=== PATIENT | female | born 1975 | race Caucasian/White ===

== ENCOUNTER 2017-03-29 21:52 | Emergency (ER) | payer BC, OTHER ==
[~2017-03-29] VITALS: Ht 160 cm; Wt 121.2 kg
[~2017-03-29 21:52] MED LIST: ALBU2.5V5 NEB; ALBU8.5H8 INH; ALPR0.5T PO; CYCL-331 PO; EPIN0.3A4 IJ; FLUT100P MC; FLUT10SP NS; FURO-69 PO; GLYB2.5T2 PO; HYDR-79 PO; MELO15TA23 PO; METO25TA9 PO; MILN50TA PO; MOME13HF2 IH; NITR0.4T SL; OMEG500C PO; ONDA4TAB10 PO; PREG200C PO; RANI300T3 PO; RIZA10TA6 PO; SIMV10TA3 PO
[2017-03-29] MEDS ORDERED: KETOROLAC 60 MG/2 ML VIAL. IM ONE (22:15)
[2017-03-29] MEDS ORDERED: PROMETHAZINE 25 MG/ML VIAL IV ONE (22:21)
[2017-03-29] MEDS ORDERED: NAPR500T PO (22:29)
[2017-03-29] MEDS ORDERED: CLIN300C8 PO (22:29)
[2017-03-29] MEDS ORDERED: PROM25SU32 PO (22:29)
--- NOTE | 2017-03-29 22:30 | PHYS DOC ---
Past History Past Medical History: COPD, Diabetes, Fibromyalgia, Migraines, Other Past Surgical History: No Surgical History, Other Smoking: Cigarettes, Less than 1pk/day Alcohol Use: None Drug Use: None Adult General Chief Complaint Chief Complaint: HEADACHE HPI HPI Patient is a pleasant 42-year-old female with a history of COPD, migraines, hypertension, hyperglycemia and fibromyalgia presents with sore throat mild frontal headache that began earlier today. Over the last 24 hours patient is experiencing a viral syndrome symptoms of sore throat without cough mild body aches chills fever to 103.1 that does improve with Tylenol or Motrin orally. Patient has had no change in voice she does have pain with swallowing is able to tolerate by mouth food and fluids. 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 Patient denies any focal neurologic deficits the headache is typical for patient as she's had migraines at this in the past is nothing new not sudden onset worst of life there is no neck stiffness associated with this particular headache. Patient denies any trauma denies a change in vision, denies any problems with word finding or speaking. Review of Systems Review of Systems Constitutional: Complaints of fever to 103.1 with chills. Eyes: Denies change in visual acuity, redness, or eye pain [] HENT: Nice nasal congestion or cough but has sore throat without change in voice or neck stiffness Respiratory: Denies cough or shortness of breath [] Cardiovascular: No additional information not addressed in HPI [] GI: Denies abdominal pain, nausea, vomiting, bloody stools or diarrhea [] : Denies dysuria or hematuria [] Musculoskeletal: Denies back pain or joint pain [] Integument: Denies rash or skin lesions [] Neurologic: Patient with frontal headache bitemporal which is typical for patient described as throbbing Endocrine: Denies polyuria or polydipsia [] Current Medications Current Medications Current Medications Medications (Trade) Dose Ordered Sig/Santo Start Time Stop Time Status Last Admin Dose Admin Dexamethasone Sodium Phosphate (Decadron) 10 mg 1X ONCE 03/29/17 22:15 03/29/17 22:16 UNV Ketorolac Tromethamine (Toradol) 60 mg 1X ONCE 03/29/17 22:15 03/29/17 22:16 UNV Promethazine HCl (Phenergan Im) 25 mg 1X ONCE 03/29/17 22:15 03/29/17 22:16 UNV Allergies Allergies Allergies Coded Allergies Type Severity Reaction Last Updated Verified Penicillins Allergy Severe 03/19/14 Yes levofloxacin Allergy Severe Anaphylaxis 11/07/16 Yes acetaminophen Allergy Unknown 02/15/14 Yes egg Allergy Unknown 02/15/14 Yes latex Allergy Unknown 02/15/14 Yes theophylline Allergy Unknown 02/15/14 Yes Estrogens Adverse Reaction Unknown blisters in mouth 10/02/14 No Physical Exam Physical Exam Constitutional: Well developed, well nourished, overweight obviously uncomfortable but nontoxic in appearance, normal speech HENT: Normocephalic, atraumatic, bilateral external ears normal, oropharynx is moist with no lesions there are exudates noted on the tonsillar pillars the peritonsillar abscess or retropharyngeal abscess or Alvaro's angina Eyes: PERRLA, EOMI, conjunctiva normal, no discharge. [] Neck: Normal range of motion, noted anterior cervical lymphadenopathy no stridor noted Cardiovascular: Regular rhythm A she is noted to be tachycardic no murmurs, rubs Lungs & Thorax: Bilateral breath sounds clear to auscultation [] Abdomen: Bowel sounds normal, soft, no tenderness, no masses, no pulsatile masses. [] Skin: Warm, dry, no erythema, no rash. [] Back: No tenderness, no CVA tenderness. [] Extremities: No tenderness, no cyanosis, no clubbing, ROM intact, no edema. [] Neurologic: Alert and oriented X 3, normal motor function, normal sensory function, no focal deficits noted. Moves all extremity spontaneously with normal strength. No focal neurologic deficits on neurologic included normal gait Psychologic: Affect normal, judgement normal, mood normal. [] EKG EKG [] Radiology/Procedures Radiology/Procedures [] Course & Med Decision Making Course & Med Decision Making Pertinent Labs and Imaging studies reviewed. (See chart for details) reviewed labs as well as vital signs and nursing notes agree with what has been annotated. Patient with likely strep pharyngitis given symptoms doubt meningitis or retropharyngeal abscess, Alvaro angina peritonsillar abscess. This may be viral in nature but patient would benefit from Decadron IM, Phenergan IM, and Toradol. She has a typical migraine headache with nothing new or soft life and sudden onset doubt issues of meningitis or subarachnoid hemorrhage at this time patient I discussed treatment options and we came up with the idea of oral hydration after IM medications. She will be dispositioned on an antibiotic such as a macrolide or clindamycin for suspected strep throat as her pharyngitis cream is positive we will give her precautions and have her follow up with her primary care doctor. Impression: Sharp pharyngitis, migraine headache Disposition: Discharged home with precautions antibiotics primary care follow- up in the next 24-48 hours asked to return for any worsening symptoms fever over 102.2 despite treatment or questions or concerns. Differential diagnosis includes viral versus bacterial pharyngitis, Alvaro angina, peritonsillar abscess, retropharyngeal abscess, sinusitis, virus, URI, migraine, tension headache, temporal arteritis, cerebral hemorrhage, otitis media, otitis externa, [] Dragon Disclaimer Dragon Disclaimer This chart was dictated in whole or in part using Voice Recognition software in a busy, high-work load, and often noisy Emergency Department environment. It may contain unintended and wholly unrecognized errors or omissions. Departure Departure: Impression: Primary Impression: Pharyngitis, acute Additional Impression: Migraine Disposition: 01 HOME, SELF-CARE Referrals: NGUYEN MORAN MD (PCP) Patient Instructions: Fever, Adult, Migraine Headache, Viral and Bacterial Pharyngitis Additional Instructions: He is follow-up with her primary care doctor for any continued or worsening symptoms. Please return here for any change in voice anterior neck stiffness or fullness or inability to tolerate her medications. Please return for any fevers greater 103.1 despite treatment or therapy of any questions or concerns. You are infectious so please avoid preparing food without washing her hands. These return for any new or changing symptoms in her headaches. Scripts Clindamycin Hcl (CLINDAMYCIN HCL) 300 Mg Capsule 1 CAP PO TID, #30 CAP Prov: KEYSHA RIOS MD 03/29/17 Promethazine HCl (Phenergan) 25 Mg Supp.rect 25 MG PO TID for 7 Days, #21 TAB Prov: KEYSHA RIOS MD 03/29/17 Naproxen (NAPROSYN) 500 Mg Tablet 1 TAB PO BID, #20 TAB 1 Refill Prov: KEYSHA RIOS MD 03/29/17 Problem Qualifiers KEYSHA RIOS MD March 29, 2017 22:30
[2017-03-29 22:40] LABS: INFLUENZA A PATIENT POSITIVE (NEGATIVE); INFLUENZA B PATIENT NEGATIVE (NEGATIVE)
[2017-03-29] MEDS ORDERED: DEXAMETHASONE SOD PHOS 10 MG/ML VIAL IM ONE (22:45)
[2017-03-29] MEDS ORDERED: PROMETHAZINE IM 25 MG/ML VIAL IM ONE (22:45)
[2017-03-29 22:50] VITALS: BP 135/72
[2017-03-29] MEDS ORDERED: CLINDAMYCIN HCL 150 MG CAPSULE PO ONE (23:00)
== END 2017-03-29 22:54 | disposition home or self-care (01) ==
LOC: ER 21:57
DX: J02.9 Acute pharyngitis, unspecified (principal); G43.909 Migraine, unspecified, not intractable, without status migrainosus; J44.9 Chronic obstructive pulmonary disease, unspecified; M79.7 Fibromyalgia; E11.65 Type 2 diabetes mellitus with hyperglycemia; F17.210 Nicotine dependence, cigarettes, uncomplicated; Z88.8 Allergy status to other drugs, medicaments and biological substances; Z88.0 Allergy status to penicillin; Z88.6 Allergy status to analgesic agent; Z88.1 Allergy status to other antibiotic agents; Z91.012 Allergy to eggs; Z91.040 Latex allergy status
CPT/HCPCS: 87804; 87880; 96372; 99284; J1100; J1885; J2550

== ENCOUNTER 2017-04-21 01:17 | Emergency (ER) | payer BC, OTHER ==
[~2017-04-21] VITALS: Ht 160 cm; Wt 121.2 kg
[~2017-04-21 01:17] MED LIST changes: +CLIN300C8 PO; +NAPR500T PO; +PROM25SU32 PO
--- NOTE | 2017-04-21 01:28 | PHYS DOC ---
Past History Past Medical History: COPD, Diabetes, Fibromyalgia, Migraines, Other Past Surgical History: No Surgical History, Other Smoking: Cigarettes, Less than 1pk/day Alcohol Use: None Drug Use: None Adult General Chief Complaint Chief Complaint: HEADACHE HPI HPI Patient here with her daughter for headache. Patient states she's had a history of migraine headaches since 13 years old. She seen doctors for this and says she's had a negative CT and MRI. She does have an appointment with her primary care physician later this week to discuss changes her present regiment as not working. She normally takes tramadol at home for her headaches but this headache did not respond to her typical treatment of dark rooms showers.. Her headache today started about 11 AM It's increased since that time. Is located over the left side of the head. It feels throbbing. She says she sees blurriness and spots in her vision. This is typical for her migraines. She has no runny nose or sore throat. She has no difficulty with speech. There is no fever or chills. She has no neck or back pain. There is no chest pain or shortness of breath. She's vomited 5 times today without blood or bilious material. She's had no abdominal pain. She has no change in bowel or bladder habits and she denies any acute focal extremity or other than the headache as previously described. She notes no other increasing or decreasing factors. There is no history of injury or trauma to the head. Patient's past medical history is remarkable for migraine headaches. She also has diabetes which is diet controlled. She has history of fibromyalgia and hypertension. She is a smoker there is nothing new or changed about this headache. Review of Systems Review of Systems Constitutional: Denies fever or chills [] Eyes: She does have some photophobia and blurred vision with sibling scotomata before the pain begins. HENT: Denies nasal congestion or sore throat [] Respiratory: Denies cough or shortness of breath [] Cardiovascular: No additional information not addressed in HPI [] GI: Denies abdominal pain, nausea, vomiting, bloody stools or diarrhea [] : Denies dysuria or hematuria [] Musculoskeletal: Denies back pain or joint pain [] Integument: Denies rash or skin lesions [] Neurologic: She describes her typical headache on the left side of her head with radiation to the neck not worst of life not sudden onset Endocrine: Denies polyuria or polydipsia [] Allergies Allergies Allergies Coded Allergies Type Severity Reaction Last Updated Verified Penicillins Allergy Severe 03/19/14 Yes levofloxacin Allergy Severe Anaphylaxis 11/07/16 Yes acetaminophen Allergy Unknown 02/15/14 Yes egg Allergy Unknown 02/15/14 Yes latex Allergy Unknown 02/15/14 Yes theophylline Allergy Unknown 02/15/14 Yes Estrogens Adverse Reaction Unknown blisters in mouth 10/02/14 No Physical Exam Physical Exam Constitutional: Well developed, well nourished, uncomfortable sitting with her eyes closed nontoxic in appearance HENT: Normocephalic, atraumatic, bilateral external ears normal, oropharynx moist, no facial tenderness to palpation or swelling. Eyes: PERRLA, EOMI, conjunctiva normal, no discharge. [] Neck: Normal range of motion, no tenderness, supple, no stridor. [] Cardiovascular:Heart rate regular rhythm, no murmur [] Lungs & Thorax: Bilateral breath sounds clear to auscultation [] Skin: Warm, dry, no erythema, no rash. [] Neurologic: Alert and oriented X 3, normal motor function, normal sensory function, no focal deficits noted. [] Psychologic: Affect normal, judgement normal, mood normal. [] EKG EKG [] Radiology/Procedures Radiology/Procedures [] Course & Med Decision Making Course & Med Decision Making Pertinent Labs and Imaging studies reviewed. (See chart for details). Nursing notes and prior medical records. Patient's pain was reviewed and rechecked at 2 AM it is improved from 9-7. Patient was resting comfortably with her eyes closed given the fact the patient is totally pain we'll attempt with DHe treatment. Spoke with patient again about eating not to use narcotics for the breakthrough and brown speck phenomenon occurs with narcotic use. I will re- treat patient and recheck pain level and disposition to her primary care doctor if I can improve her pain impression migraine headache typical for patient, nausea Disposition: [] Dragon Disclaimer Dragon Disclaimer This chart was dictated in whole or in part using Voice Recognition software in a busy, high-work load, and often noisy Emergency Department environment. It may contain unintended and wholly unrecognized errors or omissions. Departure Departure: Impression: Primary Impression: Headache Disposition: HOME, SELF-CARE Condition: IMPROVED Referrals: NGUYEN MORAN MD (PCP) Patient Instructions: Migraine Headache Additional Instructions: Patient is to return for any new or increasing symptoms despite treatment asked to follow-up with her neurologist and primary care doctor to review her medical regimen to see we can improve outpatient management of her migraines. Asked to return for any fevers greater 102.2 with neck stiffness or if she has any questions or concerns. Scripts Tramadol Hcl (TRAMADOL HCL) 50 Mg Tablet 50 MG PO PRN Q6HRS Y for PAIN for 7 Days, TAB Prov: KEYSHA RIOS MD 04/21/17 Ondansetron (ZOFRAN ODT) 8 Mg Tab.rapdis 8 MG PO TID, #10 Prov: KEYSHA RIOS MD 04/21/17 KEYSHA RIOS MD April 21, 2017 01:28
[2017-04-21] MEDS ORDERED: DEXAMETHASONE SOD PHOS 10 MG/ML VIAL IM ONE (02:00)
[2017-04-21] MEDS ORDERED: KETOROLAC 60 MG/2 ML VIAL. IM ONE (02:00)
[2017-04-21] MEDS ORDERED: diphenhydrAMINE 50 MG/ML VIAL IM ONE (02:00)
[2017-04-21] MEDS ORDERED: PROMETHAZINE IM 25 MG/ML VIAL IM ONE (02:00)
[2017-04-21] MEDS ORDERED: DIHYDROERGOTAMINE 1 MG/ML AMPUL. IVP ONE (02:30)
[2017-04-21] MEDS ORDERED: TRAM50TA PO (02:30)
[2017-04-21] MEDS ORDERED: ONDA8TAB12 PO (02:30)
[2017-04-21 02:42] VITALS: BP 134/76
[2017-04-21] MEDS ORDERED: IV NORMAL SALINE 1,000ML 1,000 ML IV ONE (03:00)
== END 2017-04-21 02:42 | disposition home or self-care (01) ==
LOC: ER 01:17
DX: G43.909 Migraine, unspecified, not intractable, without status migrainosus (principal); J44.9 Chronic obstructive pulmonary disease, unspecified; E11.9 Type 2 diabetes mellitus without complications; M79.7 Fibromyalgia; F17.210 Nicotine dependence, cigarettes, uncomplicated; Z88.0 Allergy status to penicillin; Z88.8 Allergy status to other drugs, medicaments and biological substances; Z88.6 Allergy status to analgesic agent; Z88.1 Allergy status to other antibiotic agents; Z91.012 Allergy to eggs
CPT/HCPCS: 96372; 99284; J1100; J1200; J1885; J2550

== ENCOUNTER 2017-05-07 00:58 | Emergency (ER) | payer BC, OTHER ==
[~2017-05-07 00:58] MED LIST changes: +ONDA8TAB12 PO; +TRAM50TA PO
--- NOTE | 2017-05-07 01:00 | ED.ADGEN ---
Past History Past Medical History: COPD, Diabetes, Fibromyalgia, Migraines, Other Past Surgical History: Appendectomy, Cholecystectomy, Hysterectomy, Tonsillectomy, Other Smoking: Cigarettes, Less than 1pk/day Alcohol Use: None Drug Use: None Adult General Chief Complaint Chief Complaint Right foot pain HPI HPI Patient is a 42 year old and female who presents with to pain. She was going down steps carrying boxes when her Son-In-Law stepped on her foot with his boots. She states that he twisted [id number] trying to figure out was going wrong and it is hurting on the top aspect of her right foot. She denies any ankle, or lateral aspect of her foot pain. She states it hurts more than a normal Tramadol pain. Review of Systems Review of Systems Constitutional: Denies fever or chills [] Eyes: Denies change in visual acuity, redness, or eye pain [] HENT: Denies nasal congestion or sore throat [] Respiratory: Denies cough or shortness of breath [] Cardiovascular: No additional information not addressed in HPI [] GI: Denies abdominal pain, nausea, vomiting, bloody stools or diarrhea [] : Denies dysuria or hematuria [] Musculoskeletal: Denies back pain, positive for right foot pain Integument: Denies rash or skin lesions [] Neurologic: Denies headache, focal weakness or sensory changes [] Endocrine: Denies polyuria or polydipsia [] Current Medications Current Medications Current Medications Medications (Trade) Dose Ordered Sig/Santo Start Time Stop Time Status Last Admin Dose Admin Oxycodone HCl (Roxicodone) 10 mg PRN Q6HRS PRN 05/07/17 01:15 05/07/17 01:14 10 MG Allergies Allergies Allergies Coded Allergies Type Severity Reaction Last Updated Verified Penicillins Allergy Severe 03/19/14 Yes levofloxacin Allergy Severe Anaphylaxis 11/07/16 Yes acetaminophen Allergy Unknown 02/15/14 Yes egg Allergy Unknown 02/15/14 Yes latex Allergy Unknown 02/15/14 Yes theophylline Allergy Unknown 02/15/14 Yes Estrogens Adverse Reaction Unknown blisters in mouth 10/02/14 No Physical Exam Physical Exam Constitutional: Well developed, well nourished, no acute distress, non-toxic appearance. [] HENT: Normocephalic, atraumatic, bilateral external ears normal, oropharynx moist, no oral exudates, nose normal. [] Eyes: PERRLA, EOMI, conjunctiva normal, no discharge. [] Neck: Normal range of motion, no tenderness, supple, no stridor. [] Cardiovascular:Heart rate regular rhythm, no murmur [] Lungs & Thorax: Bilateral breath sounds clear to auscultation [] Abdomen: Bowel sounds normal, soft, no tenderness, no masses, no pulsatile masses. [] Skin: Warm, dry, no erythema, no rash. [] Back: No tenderness, no CVA tenderness. [] Extremities: Tender palpation of the proximal portion of the right foot, no obvious deformity noted, no tenderness over the fifth metatarsal area, no cyanosis, no clubbing, ROM intact, no edema. Dorsal pedis pulse on right foot 2+ Neurologic: Alert and oriented X 3, normal motor function, normal sensory function, no focal deficits noted. [] Psychologic: Affect normal, judgement normal, mood normal. [] Current Patient Data Vital Signs Vital Signs Date Time Temp Pulse Resp B/P (MAP) Pulse Ox O2 Delivery O2 Flow Rate FiO2 05/07/17 01:14 20 97 Room Air 05/07/17 01:05 98.3 87 EKG EKG [] Radiology/Procedures Radiology/Procedures 3 views of the right foot did not show any fractures, bony abnormalities, malalignments, foreign bodies, as interpreted by me. Course & Med Decision Making Course & Med Decision Making Pertinent Labs and Imaging studies reviewed. (See chart for details) Reviews of the foot didn't show any obvious fractures. Patient is placed in a postop shoe and given crutches and 20 tablets of oxycodone 5 mg. She is instructed to follow-up with her primary care physician in 5 days of is still hurting, return ER if she develops swelling, ecchymosis, erythema, fevers chills or other concerns. Final Impression Final Impression Foot contusion Problems: Dragon Disclaimer Dragon Disclaimer This electronic medical record was generated, in whole or in part, using a voice recognition dictation system. MELYSSA MAYO MD May 07, 2017 01:00
[2017-05-07 01:05] VITALS: BP 118/86
[2017-05-07] MEDS ORDERED: OXYC5TAB PO (01:14)
[2017-05-07] MEDS ORDERED: oxyCODONE IR 5 MG TABLET PO PRN (01:15)
--- NOTE | 2017-05-07 07:22 | RAD ---
Right foot, 3 views, 05/07/2017: History: Injury, pain No fracture or dislocation is identified. There is generalized subcutaneous edema. A small inferior calcaneal spur is noted. IMPRESSION: No acute bony abnormality is detected.
== END 2017-05-07 02:20 | disposition home or self-care (01) ==
LOC: ER 00:58
DX: S90.31XA Contusion of right foot, initial encounter (principal); E11.9 Type 2 diabetes mellitus without complications; J44.9 Chronic obstructive pulmonary disease, unspecified; M79.7 Fibromyalgia; F17.210 Nicotine dependence, cigarettes, uncomplicated; Z88.0 Allergy status to penicillin; Z88.8 Allergy status to other drugs, medicaments and biological substances; Z88.6 Allergy status to analgesic agent; Z88.1 Allergy status to other antibiotic agents; Z91.012 Allergy to eggs; Z91.040 Latex allergy status; X58.XXXA Exposure to other specified factors, initial encounter; Y93.01 Activity, walking, marching and hiking; Y99.8 Other external cause status; Y92.89 Other specified places as the place of occurrence of the external cause
CPT/HCPCS: 73630; 99284

== ENCOUNTER 2017-05-26 23:35 | Emergency (ER) | payer BC, OTHER ==
[~2017-05-26] VITALS: Ht 160 cm; Wt 121.2 kg
[~2017-05-26 23:35] MED LIST changes: +OXYC5TAB PO
--- NOTE | 2017-05-27 00:38 | PHYS DOC ---
General Chief Complaint: HEADACHE Stated Complaint: HEAD AND JAW PAIN Time Seen by MD: 23:39 Source: patient Problems: History of Present Illness Initial Comments Patient is a 42-year-old female who comes to the ED complaining of left-sided neck and jaw pain. Patient states that for the past couple of days she's had worsening neck muscle stiffness. Yesterday she says while turning her head she felt a pop in her neck and her left cervical paraspinal muscles tightened up. She's had stiffness and muscle discomfort since that time. She denies trauma no arm or leg symptoms no numbness tingling weakness or radiating symptoms. No pre-arrival treatment. Patient states that she's been under a lot of stress, she is having custody issues with her children as well as financial and housing problems. She has temporarily lost her health insurance and has run out of her medication she takes for fibromyalgia hypertension and hyperlipidemia. Patient ultimately states that she is out of pain medications including Flexeril and Ultram. She says she has taken Ultram 100 mg twice daily long-term and states that that would takes her problem. I advised her that refills were not given from the emergency Department but I would give her several days of meds to allow her to get in with the doctor that takes her insurance. She expressed agreement and understanding. Timing/Duration: 24 hours, constant Severity: moderate Modifying Factors: worse with movement, improves with rest Associated Symptoms: other Allergies: Coded Allergies: Penicillins (Verified Allergy, Severe, 03/19/14) levofloxacin (Verified Allergy, Severe, Anaphylaxis, 11/07/16) acetaminophen (Verified Allergy, Unknown, 02/15/14) egg (Verified Allergy, Unknown, 02/15/14) latex (Verified Allergy, Unknown, 02/15/14) theophylline (Verified Allergy, Unknown, 02/15/14) Estrogens (Unverified Adverse Reaction, Unknown, blisters in mouth, ) Past Medical History Medical History: diabetes, fibromyalgia, migraines, other (COPD, diabetes, fibromyalgia, migraine headaches, chronic pain) Surgical History: appendectomy, cholecystectomy, tonsillectomy, other Family History Significant Family History: no pertinent family hx Social History Smoker: less than 1 pack/day Alcohol: none Drugs: none Review of Systems Constitutional: denies chills, denies diaphoresis, denies fever, denies malaise Respiratory: denies cough, denies shortness of breath Cardiovascular: denies chest pain, denies palpitations, denies syncope Gastrointestinal: denies abdominal pain, denies diarrhea, denies nausea, denies vomiting Genitourinary: denies dysuria, denies frequency, denies hematuria Musculoskeletal: see HPI, denies back pain, denies joint swelling Psychiatric/Neurological: see HPI, denies numbness, denies paresthesia, denies seizure, denies weakness Physical Exam General Appearance: mild distress, obese Ear, Nose, Throat: hearing grossly normal, normal ENT inspection, normal pharynx Neck: supple (left-sided cervical paraspinal hypertonicity with tenderness to palpation. No palpable deformity no bony tenderness no midline or vertebral tenderness. 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 Departure Time of Disposition: 00:34 Disposition: 01 HOME, SELF-CARE Diagnosis: torticollis, adjustment disorder, fibromyalgia Condition: GOOD Patient Instructions: Adjustment Disorder, Smoking Cessation, Tips For Success , Torticollis, Acute Additional Instructions: Stop smoking, seek medical assistance if necessary. Heating pad to affected area 15-20 minutes 4-6 times daily followed by gentle stretching. Aggressive hydration with Gatorade or water. Prescription: Flexeril, tramadol You will need to follow up with a primary care doctor for refills and health maintenance until your health insurance is reinstated and you can get back in with your regular doctor. ED staff can give you names of local doctors who are accepting new patients, who take Medicaid, and who have walk-in hours daily. Call tomorrow to schedule next available appointment. Return to ED with new or changing symptoms. SUSU UGARTE DO May 27, 2017 00:38
[2017-05-27 00:44] VITALS: BP 124/84
[2017-05-27] MEDS ORDERED: ORPHENADRINE CITRATE 60 MG/2 ML VIAL. IM ONE (00:45)
[2017-05-27] MEDS ORDERED: START PACK - traMADol 1 STARTPACK TABLET PO ONE ×2 (00:45→00:48)
[2017-05-27] MEDS ORDERED: ORPHENADRINE CITRATE 60 MG/2 ML VIAL. ONE (00:48)
== END 2017-05-27 00:58 | disposition home or self-care (01) ==
LOC: ER 23:35
DX: M43.6 Torticollis (principal); R68.84 Jaw pain; F43.20 Adjustment disorder, unspecified; M79.7 Fibromyalgia; E11.9 Type 2 diabetes mellitus without complications; G89.29 Other chronic pain; I10 Essential (primary) hypertension; J44.9 Chronic obstructive pulmonary disease, unspecified; F17.210 Nicotine dependence, cigarettes, uncomplicated; E78.5 Hyperlipidemia, unspecified; G43.909 Migraine, unspecified, not intractable, without status migrainosus; Z88.8 Allergy status to other drugs, medicaments and biological substances; Z88.6 Allergy status to analgesic agent; Z88.1 Allergy status to other antibiotic agents; Z91.012 Allergy to eggs; Z91.040 Latex allergy status; Z88.0 Allergy status to penicillin
CPT/HCPCS: 96372; 99283; J2360

== ENCOUNTER → 2017-06-09 | Outpatient (CLI) | payer OTHER ==
[2017-05-27 00:44] VITALS: BP 124/84
--- NOTE | 2017-06-09 14:28 | RAD ---
Indication +PPD test. PA and lateral views of the chest were obtained and are compared to an examination 01/31/2013. The heart and pulmonary vessels appear normal. The mediastinum has a normal appearance. The lungs are clear. There is no active disease suggested. There is no evidence of significant granulomatous disease in the past. The appearance of the chest is not changed substantially relative to the previous exam. IMPRESSION: No acute finding. No evidence of active or significant previous granulomatous disease in the chest
== END | disposition home or self-care (01) ==
LOC: DXRADRC 14:15
PROVIDERS: ATTEND General Practice
DX: R76.11 Nonspecific reaction to tuberculin skin test without active tuberculosis (principal)
CPT/HCPCS: 71020

== ENCOUNTER 2017-06-13 03:58 | Emergency (ER) | payer OTHER ==
[~2017-06-13] VITALS: Ht 160 cm; Wt 121.2 kg
[2017-06-13 04:23] VITALS: BP 163/90
--- NOTE | 2017-06-13 04:33 | PHYS DOC ---
Past History Past Medical History: COPD, Diabetes, Fibromyalgia, Migraines Past Surgical History: No Surgical History Smoking: Cigarettes, Less than 1pk/day Alcohol Use: None Drug Use: None Adult General Chief Complaint Chief Complaint: BURN/SMOKE INHALATION HPI HPI Patient is a 42 year old female who presents with burn. She was cooking grits at [employer] and the pot tipped. She had the hot grits hit her right thigh and left foot. Tetanus is up to date.This occurred at 0300 am. Review of Systems Review of Systems Integument: chen as noted Allergies Allergies Allergies Coded Allergies Type Severity Reaction Last Updated Verified Penicillins Allergy Severe 03/19/14 Yes levofloxacin Allergy Severe Anaphylaxis 11/07/16 Yes acetaminophen Allergy Unknown 02/15/14 Yes egg Allergy Unknown 02/15/14 Yes latex Allergy Unknown 02/15/14 Yes theophylline Allergy Unknown 02/15/14 Yes Estrogens Adverse Reaction Unknown blisters in mouth 10/02/14 No Physical Exam Physical Exam Constitutional: Well developed, well nourished, no acute distress, non-toxic appearance. Skin: dime sized area of superficial burn to right upper outer thigh. 3 cm area on left medial foot of superficial burn. Course & Med Decision Making Course & Med Decision Making Patient has tetanus up to date. Silvadene ointment applied. F/u work comp Dragon Disclaimer Dragon Disclaimer This chart was dictated in whole or in part using Voice Recognition software in a busy, high-work load, and often noisy Emergency Department environment. It may contain unintended and wholly unrecognized errors or omissions. Departure Departure: Impression: Primary Impression: Superficial burn of foot Additional Impression: Superficial burn of right lower extremity Disposition: 01 HOME, SELF-CARE Condition: GOOD Referrals: LATISHA BALES DO (PCP) Patient Instructions: Burn Care Problem Qualifiers Primary Impression: Superficial burn of foot Encounter type: initial encounter Laterality: left Qualified Codes: T25.122A - Burn of first degree of left foot, initial encounter Additional Impression: Superficial burn of right lower extremity Encounter type: initial encounter Qualified Codes: T24.101A - Burn of first degree of unspecified site of right lower limb, except ankle and foot, initial encounter STARLA MELENDEZ MD Jun 13, 2017 04:33
[2017-06-13] MEDS ORDERED: silver sulfADIAZINE 1% CREAM 50GM JAR. TP ONE (05:00)
== END 2017-06-13 05:00 | disposition home or self-care (01) ==
LOC: ER 03:58
DX: T25.122A Burn of first degree of left foot, initial encounter (principal); T24.111A Burn of first degree of right thigh, initial encounter; T24.101A Burn of first degree of unspecified site of right lower limb, except ankle and foot, initial encounter; E11.9 Type 2 diabetes mellitus without complications; J44.9 Chronic obstructive pulmonary disease, unspecified; M79.7 Fibromyalgia; G43.909 Migraine, unspecified, not intractable, without status migrainosus; F17.210 Nicotine dependence, cigarettes, uncomplicated; Z88.0 Allergy status to penicillin; Z88.8 Allergy status to other drugs, medicaments and biological substances; Z88.6 Allergy status to analgesic agent; Z88.1 Allergy status to other antibiotic agents; Z91.012 Allergy to eggs; Z91.040 Latex allergy status; X15.2XXA Contact with hotplate, initial encounter; Y93.G3 Activity, cooking and baking; Y99.8 Other external cause status; Y92.098 Other place in other non-institutional residence as the place of occurrence of the external cause
CPT/HCPCS: 99284-25

== ENCOUNTER 2017-11-17 01:35 | Inpatient (IN) | payer BC, OTHER ==
[~2017-11-17] VITALS: Ht 157.5 cm; Wt 119.9 kg
[~2017-11-17 01:35] MED LIST changes: +METO-239 PO; -METO25TA9 PO; +NAPR-683 PO; -NAPR500T PO; -OXYC5TAB PO; +OXYC5TAB95 PO
[2017-11-17] MEDS ORDERED: ASPIRIN 81 MG TAB.CHEW PO ONE (01:45)
--- NOTE | 2017-11-17 01:45 | PHYS DOC ---
General Chief Complaint: CHEST PAIN Stated Complaint: CHEST PAIN Time Seen by MD: 01:35 Source: patient, old records Exam Limitations: no limitations Problems: History of Present Illness Initial Comments Patient is a 42-year-old female who comes to the ED complaining of chest pain. Patient states that approximately 30 minutes prior to arrival while at rest she developed sudden onset left-sided chest discomfort described as tight and pressure with radiation to her left neck and down the back of her left arm. Symptoms are scored at 8 on a pain scale with accompanying nausea no vomiting, also with diaphoresis and shortness of breath. She's felt palpitations no dizziness headache or focal neurologic deficits. No exacerbating or relieving factors noted. Patient says she's had a normal stress test in 2013, she followed with Dr. Dominguez for a short time for outpatient Holter monitor and blood pressure management. Timing/Duration: 1/2 hour Severity: severe Modifying Factors: improves with other Associated Symptoms: chest pain, diaphoresis, malaise, nausea/vomiting, shortness of breath Allergies: Coded Allergies: Penicillins (Verified Allergy, Severe, 03/19/14) levofloxacin (Verified Allergy, Severe, Anaphylaxis, 11/07/16) acetaminophen (Verified Allergy, Unknown, 02/15/14) egg (Verified Allergy, Unknown, 02/15/14) latex (Verified Allergy, Unknown, 02/15/14) theophylline (Verified Allergy, Unknown, 02/15/14) Estrogens (Unverified Adverse Reaction, Unknown, blisters in mouth, ) Past Medical History Medical History: COPD, diabetes, fibromyalgia, migraines, other (chronic pain) Surgical History: appendectomy, cholecystectomy, tonsillectomy, other Family History Significant Family History: no pertinent family hx Social History Smoker: quit greater than 1 year Alcohol: none Drugs: none Review of Systems Constitutional: denies chills, diaphoresis, denies fever, malaise EENTM: see HPI, denies eye pain, denies ear pain, denies nose pain Respiratory: denies cough, shortness of breath, denies wheezing Cardiovascular: chest pain, denies edema, palpitations, denies syncope Gastrointestinal: denies abdominal pain, nausea, denies vomiting Genitourinary: denies dysuria, denies frequency, denies hematuria Musculoskeletal: see HPI, denies back pain, denies joint swelling Psychiatric/Neurological: denies headache, denies numbness, denies paresthesia , denies weakness Hematologic/Lymphatic: denies blood clots, denies easy bleeding, denies easy bruising Physical Exam General Appearance: moderate distress (disheveled), obese Eyes: bilateral eye normal inspection, bilateral eye PERRL, bilateral eye EOMI Ear, Nose, Throat: hearing grossly normal, normal ENT inspection, normal pharynx Neck: non-tender, supple Respiratory: normal breath sounds, no respiratory distress Cardiovascular: normal peripheral pulses, regular rate, rhythm Gastrointestinal: normal bowel sounds, non tender, soft Back: no CVA tenderness, no vertebral tenderness Extremities: normal range of motion, non-tender, no calf tenderness, pelvis stable, other (1+ nonpitting edema b/l) Neurologic/Psychiatric: system trainer II-XII nml as tested, no motor/sensory deficits, alert, oriented x 3, other (anxious) Skin: warm/dry, pallor Orders, Labs, Meds EKG: Normal sinus rhythm 99 bpm, no ST segment elevation interpreted by me. Chest AP: Cardiac silhouette and mediastinal structures appear to be within normal limits, no effusions or discrete infiltrates noted. Interpreted by me. Pertinent labs: Hemoglobin 11.1, potassium 3.3, magnesium 1.7, albumin 2.8, corrected calcium 8.7 0301: I discussed the patient with Dr. Dillard senior controls engineer hospitalist at [facility] [place]. After thorough discussion of the patient's history, presentation, and EGD results she agrees to accept inpatient telemetry admission for further evaluation of her chest pain and electrolyte management as well as cardiac consultation. The patient's chest pain has improved slightly with sublingual nitroglycerin 1 from an 8 to a 6, protocol is being continued. She is also receiving 20 mEq of potassium, Slow-Mag by mouth in addition to the aspirin already received. Impressions: Chest pain Hypokalemia Hypomagnesemia Protein malnutrition Tobaccoism Departure Time of Disposition: 02:55 Disposition: 09 ADMITTED INPATIENT Diagnosis: chest pain, hyperkalemia, hypomagnesemia Condition: STABLE Additional Instructions: Inpatient telemetry admission Dr. Dillard is accepting SUSU UGARTE DO Nov 17, 2017 01:45
[2017-11-17] MEDS: NITROGLYCERIN SUBLINGUAL 0.4 MG BOTTLE OF 25. SL PRN ×2 (01:51→03:08)
[2017-11-17 02:29] LABS: BASO # 0.1 x10^3/uL (0.0-0.2); BASO % 1 % (0-3); EOS # 0.3 x10^3/uL (0.0-0.7); EOS % 3 % (0-3); HEMOGLOBIN 11.1 g/dL (12.0-15.5); LYMPH # 3.3 x10^3/uL (1.0-4.8); LYMPH % 37 % (24-48); MEAN CORPUSCULAR HEMOGLOBIN 31 pg (25-35); MEAN CORPUSCULAR HGB CONC 35 g/dL (31-37); MEAN CORPUSCULAR VOLUME 89 fL (79-100); MONO # 0.5 x10^3/uL (0.0-1.1); MONO % 5 % (0-9); NEUT # 4.7 x10^3uL (1.8-7.7); NEUT % 54 % (31-73); PLATELET COUNT 166 x10^3/uL (140-400); RED BLOOD COUNT 3.59 x10^6/uL (3.50-5.40); RED CELL DISTRIBUTION WIDTH 14.1 % (11.5-14.5); WHITE BLOOD COUNT 8.7 x10^3/uL (4.0-11.0)
[2017-11-17 02:44] LABS: ALBUMIN 2.8 g/dL (3.4-5.0); ALBUMIN/GLOBULIN RATIO 0.8 (1.0-1.7); CALCIUM 7.7 mg/dL (8.5-10.1); CREATININE 0.8 mg/dL (0.6-1.0); GFR 79.4; MAGNESIUM 1.7 mg/dL (1.8-2.4); POTASSIUM 3.3 mmol/L (3.5-5.1); TOTAL BILIRUBIN 0.2 mg/dL (0.2-1.0); TOTAL PROTEIN 6.2 g/dL (6.4-8.2)
[2017-11-17] MEDS ORDERED: NITROGLYCERIN SUBLINGUAL 0.4 MG BOTTLE OF 25. SL PRN (03:15)
[2017-11-17] MEDS ORDERED: ONDANSETRON PF 4 MG/2 ML VIAL. IV PRN (03:15)
[2017-11-17] MEDS: MAGNESIUM CHLORIDE ER 64 MG TABLET.ER PO SCH ×2 (03:16→09:36)
[2017-11-17 03:26] LABS: BACTERIA,URINE 0 /HPF (0-FEW); BARBITURATES NEG (NEG); BENZODIAZEPINES NEG (NEG); BILIRUBIN,URINE NEG (NEG); CANNABINOIDS NEG (NEG); CLARITY,URINE CLEAR; COCAINE NEG (NEG); COLOR,URINE YELLOW; GLUCOSE,URINE NEG (NEG); METHADONE NEG (NEG); NITRITE,URINE NEG (NEG); OPIATES NEG (NEG); PHENCYCLIDINE NEG (NEG); RBC,URINE 0 /HPF (0-2); SQUAMOUS EPITHELIAL CELL,UR MANY /LPF; UROBILINOGEN,URINE 4 mg/dL (0.2 mg/dL); WBC,URINE OCC /HPF (0-4)
[2017-11-17 03:27] LABS: AMPHETAMINE/METHAMPHETAMINE NEG (NEG)
[2017-11-17] MEDS ORDERED: POTASSIUM CHLORIDE 20 MEQ TABLET.ER. PO ONE (03:30)
[2017-11-17 04:20] VITALS: BP 108/75
[2017-11-17] MEDS ORDERED: DEXTROSE 50% 25 GM / 50ML DISP.SYRIN. IV PRN (05:00)
[2017-11-17] MEDS ORDERED: ROPI0.252 PO (05:53)
[2017-11-17] MEDS ORDERED: TRAM50TA PO (05:53)
[2017-11-17] MEDS: IPRATRPIUM/ALBUTEROL 0.5/2.5MG 3 ML NEBU. NEB SCH ×4 (05:53→21:10)
[2017-11-17] MEDS ORDERED: MONT10TA9 PO (05:53)
[2017-11-17] MEDS ORDERED: LISI-338 PO (05:53)
[2017-11-17] MEDS ORDERED: PHEN37.598 PO (06:02)
[2017-11-17] MEDS ORDERED: HORMONE TROCHE SL (06:02)
--- NOTE | 2017-11-17 07:20 | RAD ---
Portable chest, 11/17/2017: History: Chest pain Comparison is made to a study from 06/09/2017. The heart size and pulmonary vascularity are normal. No pulmonary infiltrates are seen. There is no evidence of pleural fluid. IMPRESSION: No acute cardiopulmonary abnormality is detected.
--- NOTE | 2017-11-17 07:46 | EKG ---
[address] [address] Test Date: 2017-11-17 Test Time: 01:41:25 Pat Name: YAZAN GUTHRIE Department: Room: 117 A Gender: F Dexigraph Operator: MARY : 1975 Requested By: SUSU UGARTE Order Number: [id number] Reading MD: Masood Hendrickson MD Measurements Intervals [place] Rate: 99 P: 78 ND: 130 QRS: 44 QRSD: 106 T: 64 QT: 348 QTc: 446 Interpretive Statements SINUS RHYTHM Electronically Signed On 11-17-2017 15:27:01 [facility] COUNSEL by Masood Hendrickson MD
[2017-11-17] MEDS ORDERED: ALBUTEROL SULFATE 2.5 MG/3 ML NEBU. NEB PRN (09:15)
[2017-11-17] MEDS ORDERED: ALBUTEROL SULFATE 8GM INHALER. INH PRN (09:15)
[2017-11-17] MEDS: LISINOPRIL 5 MG TABLET. PO SCH (09:35)
[2017-11-17] MEDS: traMADol 50 MG TABLET PO SCH ×2 (09:35→20:06)
[2017-11-17] MEDS: NICOTINE 21MG PATCH. TD SCH (09:36)
[2017-11-17] MEDS ORDERED: KETOROLAC 30 MG/ML VIAL. IV ONE (09:45)
--- NOTE | 2017-11-17 10:19 | HP ---
ADMIT DATE: 11/17/2017 REASON FOR ADMISSION: Chest pain. 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 She has been under a lot of stress. She reported yesterday was having chest pain, feeling central pressure, felt it back and to her back, left side of her neck, shooting pains down her left arm. She was sweaty and pale and felt like an elephant was sitting on her chest. She then came to the hospital. The first nitroglycerin did not work. A second nitroglycerin gave her some significant relief. PAST MEDICAL HISTORY: She has had two other cardiac events and has had Holter monitors which she states showing some heart racing. Stress test in 2013 evidently negative. She has hypertension, type 2 diabetes, fibromyalgia, COPD, migraine and tobacco use disorder. FAMILY HISTORY: Father of heart attack in his late 50s. Mother had a blood clot, which caused a heart attack and diabetes. Grandmother with diabetes. ALLERGIES: PENICILLIN, TYLENOL, ESTROGEN, EGG, LATEX, LEVAQUIN, THEOPHYLLINE. MEDICATIONS: Reviewed and available on the JAN. HABITS: Tobacco, one half pack per day; occasional alcohol, no other illicit drugs. REVIEW OF SYSTEMS: The patient has been on a diet and has gone from 283 to 258. She states she does "snore" and reports some startling of feeling panicked when she wakes up in the middle of the night and concern of sleep apnea." The rest as per HPI. Complaining of a headache. PHYSICAL EXAMINATION: VITAL SIGNS: Blood pressure is 108/75, pulse 82, respirations 20, pulse ox 96% on room air, temperature 97.8, height 62 inches, weight 263.19 pounds, BMI is 48. GENERAL: A 42-year-old in no acute distress. HEENT: Pupils are equal, round, react to light. Extraocular muscles were intact. Nose is patent. Throat was clear. The patient has a large tongue relative to small posterior pharynx. NECK: Short. No carotid bruits. Thyroid was not enlarged. LUNGS: Clear to auscultation. CARDIOVASCULAR: Regular rhythm and rate, mild tachycardia at the time of listening, about 100. ABDOMEN: Soft, nontender. EXTREMITIES: Without edema, no cords, no pain, calf pain, negative Homans. NEUROLOGIC: She is intact. MUSCULOSKELETAL: Does have some left-sided neck pain. LABORATORY DATA: Hemoglobin 11.1, hematocrit 32.0, troponin 0.017 times 2. Potassium 3.3, magnesium 1.7, albumin is 2.8. D-dimer is normal. ASSESSMENT: 1. Chest pain suspicious for angina. Two troponins negative. EKG not available at this present time. Could not ____ assessment of angina equivalent. 2. Tobacco use disorder. 3. Morbid obesity. 4. Sleep apnea suspect. 5. Previous history of rapid heart rate. 6. Hypertension. 7. Type 2 diabetes. 8. Fibromyalgia. 9. Chronic obstructive pulmonary disease. 9. History of migraine headaches. PLAN: Cardiology consult to rule out protocol. Daljit results from her stress test and we will defer to Cardiology if the workup may need. LORETA ELENA DO DR: GABRIELLE/zoya JOB#: [id number] / [id number]
[2017-11-17 11:33] VITALS: BP 134/92
[2017-11-17 15:07] VITALS: BP 120/81
--- NOTE | 2017-11-17 16:10 | CONS ---
DATE OF CONSULTATION: 11/17/2017 REASON FOR CONSULTATION: Chest pain. HISTORY OF PRESENT ILLNESS: The patient is a 42-year-old woman who has been admitted to the hospital in the setting of chest pain. She has had significant stressors in her life mostly psychosocial events, which have led to her increased stress and palpitations over the last several weeks. She was recently admitted to [facility] in 04/2017 and underwent an echocardiogram, which did not reveal any significant pathology and she was discharged to home in stable condition, is advised to follow up on an outpatient basis, but due to her psychosocial stressors has been unable to do so. In speaking with the patient, she reports left-sided chest pain in the neck with radiation up to the head. Reports there is a sharp pain. Although nitroglycerin relieved chest pain, it did not relieve her neck pain. 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 She has a known chronic history of morbid obesity and tobacco abuse. Otherwise, overall she denies any significant lower extremity edema, orthopnea, PND or syncope. PAST MEDICAL HISTORY: 1. Morbid obesity. 2. Hypertension. 3. Tobacco abuse. FAMILY HISTORY: Notable for coronary artery disease with NE in her mother and father before the age of 55. SOCIAL HISTORY: The patient does not smoke. 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 REVIEW OF SYSTEMS: Negative for 10 out of 14 systems reviewed, unless otherwise mentioned above in HPI. ALLERGIES: ESTROGEN, PENICILLIN, TYLENOL, EGG, LATEX, LEVOFLOXACIN, THEOPHYLLINE. CURRENT CARDIOVASCULAR MEDICATIONS: 1. Lisinopril 5 mg daily. 2. Metoprolol, dose unknown. PHYSICAL EXAMINATION: VITAL SIGNS: Afebrile, 82, 20, 108/75, 97% on room air. GENERAL: She is obese, alert and oriented, in no acute distress. HEAD AND NECK: Unremarkable. CARDIAC: Regular rate and rhythm without any murmurs, rubs or gallops. LUNGS: Clear to auscultation bilaterally. ABDOMEN: Obese, nontender, nondistended with persistent bowel sounds. EXTREMITIES: No clubbing, cyanosis or edema. NEUROLOGIC: No focal deficits. MUSCULOSKELETAL: No trauma. LABORATORY DATA: Hemoglobin 11.1. Troponin negative x 3. Tox screen is negative. Chest x-ray is unremarkable. EKG is unremarkable. Echocardiogram in 04/2017 revealed normal LV systolic function without any significant valvular abnormalities. IMPRESSION: Atypical chest pain, recurrent in the setting of multiple risk factors including family history, tobacco abuse and morbid obesity. RECOMMENDATIONS: I discussed with the patient regarding inpatient versus outpatient stress testing and she wishes to pursue inpatient stress testing. We will make her n.p.o. at midnight and plan for a stress test tomorrow morning. Thank you for this consultation. RADHA YBARRA MD DR: NEHAL/zoya JOB#: [id number] / [id number]
--- NOTE | 2017-11-17 16:45 | CARD ---
MR#: [id number] Date of Study: 11/17/2017 Ordering Physician: LORETA ELENA, Referring Physician: Darlene BREWER: Jair Reyes [facility] APPROVED REPORT EXAM: Two-dimensional and M-mode echocardiogram with Doppler and color Doppler. Other Information Quality : Good INDICATION Chest Pain 2D DIMENSIONS Left Atrium(2D)3.5 (1.6-4.0cm)IVSd1.2 (0.7-1.1cm) Aortic Root(2D)2.5 (2.0-3.7cm)LVDd4.8 (3.9-5.9cm) LVOT Diameter2.0 (1.8-2.4cm)PWd1.2 (0.7-1.1cm) LVDs3.2 (2.5-4.0cm)FS (%) 33.7 % SV66.3 mlLVEF(%)62.4 (>50%) Aortic Valve AoV Peak Johnnie.186.2cm/sAoV VTI34.0cm AO Peak GR.13.9mmHgLVOT Peak Johnnie.145.2cm/s LVOT VTI 26.54cmAO Mean GR.8mmHg MATT (VMAX)2.88mp1DUX (VTI)2.37cm2 Mitral Valve MV E Nrwzroyi34.9cm/sMV DECEL [id number] MV A Rpuzmwwn24.6cm/sE/A Ratio1.1 Tricuspid Valve TR P. [id number]/sRAP [id number] TR Peak Gr.17srWjENNO34afYk LEFT VENTRICLE The left ventricle is normal size. There is mild concentric left ventricular hypertrophy. Left ventri maurisio systolic function is normal. The Ejection Fraction is 55-60%. There is normal LV segmental wall m otion. The left ventricular diastolic function and filling is normal for age. RIGHT VENTRICLE The right ventricle is normal size. The right ventricular systolic function is normal. ATRIA The left atrium size is normal. The right atrium size is normal. The interatrial septum is intact wit h no evidence for an atrial septal defect or patent foramen ovale as noted on 2-D or Doppler imaging. AORTIC VALVE The aortic valve is normal in structure and function. Doppler and Color Flow revealed no significant aortic regurgitation. There is no significant aortic valvular stenosis. MITRAL VALVE The mitral valve is normal in structure and function. There is no evidence of mitral valve prolapse. There is no mitral valve stenosis. Doppler and Color Flow revealed no mitral valve regurgitation note d. TRICUSPID VALVE The tricuspid valve is normal in structure and function. Trace tricuspid regurgitation. There is no p ulmonary hypertension. The PA pressure was estimated at 19 mmHg. There is no tricuspid valve prolapse or vegetation. There is no tricuspid valve stenosis. PULMONIC VALVE The pulmonary valve is normal in structure and function. Doppler and Color Flow revealed no pulmonic valvular regurgitation. There is no pulmonic valvular stenosis. GREAT VESSELS The aortic root is normal in size. The ascending aorta is normal in size. The IVC is normal in size a nd collapses >50% with inspiration. PERICARDIAL EFFUSION There is no pleural effusion. There is no evidence of significant pericardial effusion. Critical Notification Critical Value: No <Conclusion> Left ventricle systolic function is normal. The Ejection Fraction is 55-60%. There is normal LV segmental wall motion. Trace tricuspid regurgitation. The PA pressure was estimated at 19 mmHg. There is no evidence of significant pericardial effusion. Signed by : Rolbes Dominguez, Electronically Approved : 11/17/2017 16:44:33
[2017-11-17] MEDS: rOPINIRole 0.25 MG TABLET. PO SCH (20:05)
[2017-11-17] MEDS: MONTELUKAST 10 MG TABLET. PO SCH (20:06)
[2017-11-17 20:20] VITALS: BP 132/88
[2017-11-17 22:00] VITALS: BP 109/66
[2017-11-18] MEDS: KETOROLAC 30 MG/ML VIAL. IV PRN ×3 (04:33→19:30)
[2017-11-18 06:03] VITALS: BP 127/83
[2017-11-18 06:26] LABS: BASO % 1 % (0-3); CREATININE 0.8 mg/dL (0.6-1.0); EOS # 0.1 x10^3/uL (0.0-0.7); EOS % 2 % (0-3); GFR 79.4; HEMATOCRIT 39.4 % (36.0-47.0); HEMOGLOBIN 13.6 g/dL (12.0-15.5); LYMPH # 1.8 x10^3/uL (1.0-4.8); LYMPH % 27 % (24-48); MEAN CORPUSCULAR HEMOGLOBIN 30 pg (25-35); MEAN CORPUSCULAR HGB CONC 35 g/dL (31-37); MEAN CORPUSCULAR VOLUME 87 fL (79-100); MONO # 0.7 x10^3/uL (0.0-1.1); MONO % 11 % (0-9); NEUT % 59 % (31-73); PLATELET COUNT 209 x10^3/uL (140-400); POTASSIUM 4.1 mmol/L (3.5-5.1); RED BLOOD COUNT 4.53 x10^6/uL (3.50-5.40); RED CELL DISTRIBUTION WIDTH 14.4 % (11.5-14.5); WHITE BLOOD COUNT 6.7 x10^3/uL (4.0-11.0)
[2017-11-18] MEDS: MAGNESIUM CHLORIDE ER 64 MG TABLET.ER PO SCH (10:13)
[2017-11-18] MEDS: LISINOPRIL 5 MG TABLET. PO SCH (10:13)
[2017-11-18] MEDS: traMADol 50 MG TABLET PO SCH ×2 (10:15→20:31)
[2017-11-18] MEDS: NICOTINE 21MG PATCH. TD SCH (10:18)
[2017-11-18 11:07] VITALS: BP 128/94
[2017-11-18] MEDS ORDERED: REGADENOSON 0.4 MG/5 ML DISP.SYRIN. IV ONE (13:00)
[2017-11-18] MEDS ORDERED: ONDANSETRON PF 4 MG/2 ML VIAL. IV PRN (13:45)
[2017-11-18 15:04] VITALS: BP 146/94
[2017-11-18] MEDS: IPRATRPIUM/ALBUTEROL 0.5/2.5MG 3 ML NEBU. NEB SCH ×2 (16:48→21:23)
[2017-11-18 19:06] VITALS: BP 122/82
--- NOTE | 2017-11-18 19:09 | PDOC ---
PROVIDER NOTE PROVIDER NOTE PROVIDER NOTE Initial stress portion abnormal, awaiting resting study. Will make NPO at midnight and finish second portion in a.m. If negative, will transfer for cath. Thanks. RADHA YBARRA MD Nov 18, 2017 19:09
[2017-11-18] MEDS: MONTELUKAST 10 MG TABLET. PO SCH (20:31)
[2017-11-18] MEDS: rOPINIRole 0.25 MG TABLET. PO SCH (20:31)
[2017-11-18 22:12] VITALS: BP 111/75
[2017-11-19] MEDS: KETOROLAC 30 MG/ML VIAL. IV PRN ×2 (02:42→16:02)
[2017-11-19 05:35] VITALS: BP 116/79
[2017-11-19] MEDS: IPRATRPIUM/ALBUTEROL 0.5/2.5MG 3 ML NEBU. NEB SCH ×3 (05:56→16:00)
--- NOTE | 2017-11-19 09:10 | PDOC ---
PROGRESS NOTES Assessment 1. chest pain - MPI pending. Consider transfer for cardiac cath if abnormal. 2. Hypertension - 3. tobaccoism - cessation encouraged Problems: Subjective complains of chest pain after stress test yesterday. no discomfort overnight. no dyspnea or palpitations. Waiting for resting scan for MPI. Objective Vital Signs Date Time Temp Pulse Resp B/P (MAP) Pulse Ox O2 Delivery O2 Flow Rate FiO2 11/19/17 05:35 98.4 83 18 116/79 (91) 95 Nasal Cannula 2.0 Intake and Output 11/19/17 07:00 Intake Total 1400 ml Balance 1400 ml Intake Oral 1400 ml # Voids 6 Abdomen: Normal bowel sounds, Soft Heart: Regular rate, Normal S1, Normal S2 Extremities: No cyanosis, Normal pulses General: Alert, Oriented X3, Cooperative Lungs: Clear to auscultation Neuro: Normal speech Psych/Mental Status: Mental status NL, Mood NL Review of Relevant I have reviewed the following items brooke (where applicable) has been applied. Labs Laboratory Tests Test 11/17/17 11:56 11/17/17 14:00 11/17/17 16:29 11/17/17 21:05 Glucose (Fingerstick) 97 mg/dL (70-99) 140 mg/dL (70-99) 115 mg/dL (70-99) Troponin I Quantitative < 0.017 ng/mL (0-0.055) Test 11/18/17 05:48 11/18/17 07:36 11/18/17 11:41 11/18/17 16:25 White Blood Count 6.7 x10^3/uL (4.0-11.0) Red Blood Count 4.53 x10^6/uL (3.50-5.40) Hemoglobin 13.6 g/dL (12.0-15.5) Hematocrit 39.4 % (36.0-47.0) Mean Corpuscular Volume 87 fL (79-100) Mean Corpuscular Hemoglobin 30 pg (25-35) Mean Corpuscular Hemoglobin Concent 35 g/dL (31-37) Red Cell Distribution Width 14.4 % (11.5-14.5) Platelet Count 209 x10^3/uL (140-400) Neutrophils (%) (Auto) 59 % (31-73) Lymphocytes (%) (Auto) 27 % (24-48) Monocytes (%) (Auto) 11 % (0-9) Eosinophils (%) (Auto) 2 % (0-3) Basophils (%) (Auto) 1 % (0-3) Neutrophils # (Auto) 4.0 x10^3uL (1.8-7.7) Lymphocytes # (Auto) 1.8 x10^3/uL (1.0-4.8) Monocytes # (Auto) 0.7 x10^3/uL (0.0-1.1) Eosinophils # (Auto) 0.1 x10^3/uL (0.0-0.7) Basophils # (Auto) 0.0 x10^3/uL (0.0-0.2) Sodium Level 142 mmol/L (136-145) Potassium Level 4.1 mmol/L (3.5-5.1) Chloride Level 108 mmol/L (98-107) Carbon Dioxide Level 28 mmol/L (21-32) Anion Gap 6 (6-14) Blood Urea Nitrogen 6 mg/dL (7-20) Creatinine 0.8 mg/dL (0.6-1.0) Estimated GFR (Cockcroft-Gault) 79.4 Glucose Level 97 mg/dL (70-99) Calcium Level 9.0 mg/dL (8.5-10.1) Glucose (Fingerstick) 95 mg/dL (70-99) 91 mg/dL (70-99) 115 mg/dL (70-99) Test 11/18/17 19:44 Glucose (Fingerstick) 112 mg/dL (70-99) Medications Current Medications Aspirin (Children'S Aspirin) 324 mg 1X ONCE PO Last administered on 01:50; Start 11/17/17 at 01:45; Stop 11/17/17 at 02:01; Status DC Nitroglycerin (Nitrostat) 0.4 mg PRN Q5MIN PRN SL CP RATING > 1/10 Last administered on 11/17/17 03:08; Start 11/17/17 at 01:45; Stop 11/17/17 at 09 :09; Status DC Potassium Chloride (Klor-Con) 20 meq 1X ONCE PO Last administered on 03:16; Start 11/17/17 at 03:30; Stop 11/17/17 at 03:31; Status DC Magnesium Chloride (Mag Delay) 64 mg DAILY PO Last administered on 11/18/17 10:13; Start 11/17/17 at 03:30 Ondansetron HCl (Zofran) 4 mg PRN Q4HRS PRN IV NAUSEA/VOMITING Last administered on 11/17/17 03:19; Start 11/17/17 at 03:15; Stop 11/18/17 at 03 :14; Status DC Nitroglycerin (Nitrostat) 0.4 mg PRN Q5MIN PRN SL CHEST PAIN; Start 11/17/17 at 03:15; Stop 11/18/17 at 03:14; Status DC Albuterol/ Ipratropium (Duoneb) 3 ml RTQID NEB Last administered on 11/17/17 21:10; Start 11/17/17 at 08:00; Stop 11/18/17 at 07:59; Status DC Nicotine (Nicoderm Cq 21mg) 1 patch DAILY TD Last administered on 11/18/17 10 :18; Start 11/17/17 at 09:00 Dextrose 12.5 gm PRN Q15MIN PRN IV SEE COMMENTS; Start 11/17/17 at 05:00 Albuterol Sulfate (Ventolin Hfa) 1 puff PRN Q6HRS PRN INH SHORTNESS OF BREATH; Start 11/17/17 at 09:15; Stop 11/17/17 at 09:15; Status DC Lisinopril (Prinivil) 5 mg DAILY PO Last administered on 11/18/17 10:13; Start 11/17/17 at 09:15 Montelukast Sodium (Singulair) 10 mg HS PO Last administered on 11/18/17 20: 31; Start 11/17/17 at 21:00 Ropinirole HCl (Requip) 0.25 mg HS PO Last administered on 11/18/17 20:31; Start 11/17/17 at 21:00 Tramadol HCl (Ultram) 50 mg BID PO Last administered on 11/18/17 20:31; Start 11/17/17 at 09:15 Albuterol Sulfate (Ventolin) 2.5 mg PRN Q6HRS PRN NEB SHORTNESS OF BREATH; Start 11/17/17 at 09:15 Ketorolac Tromethamine (Toradol) 30 mg 1X ONCE IV Last administered on 11:04; Start 11/17/17 at 09:45; Stop 11/17/17 at 09:47; Status DC Ketorolac Tromethamine (Toradol) 30 mg PRN Q6HRS PRN IV PAIN Last administered on 11/19/17 02:42; Start 11/17/17 at 09:30; Stop 11/22/17 at 09:29 Regadenoson (Lexiscan) 0.4 mg 1X ONCE IV Last administered on 11/18/17 14:43 ; Start 11/18/17 at 13:00; Stop 11/18/17 at 13:01; Status DC Ondansetron HCl (Zofran) 4 mg PRN Q4HRS PRN IV NAUSEA/VOMITING; Start at 13:45 Albuterol/ Ipratropium (Duoneb) 3 ml RTQID NEB Last administered on 11/18/17 21:23; Start 11/18/17 at 16:00 Active Scripts Active Reported [Hormone Merari] 0.5 Strip SL BID LAST DOSE GIVEN: DATE: TIME: NEXT DOSE DUE: DATE: TIME: Adipex-P (Phentermine Hcl) 37.5 Mg Tablet 37.5 Mg PO DAILY LAST DOSE GIVEN: DATE: TIME: NEXT DOSE DUE: DATE: TIME: Tramadol Hcl (Tramadol HCl) 50 Mg Tablet 50 Mg PO BID LAST DOSE GIVEN: DATE: TIME: NEXT DOSE DUE: DATE: TIME: Montelukast Sodium Tablet (Montelukast Sodium) 10 Mg Tablet 10 Mg PO HS LAST DOSE GIVEN: DATE: TIME: NEXT DOSE DUE: DATE: TIME: Ropinirole Hcl 0.25 Mg Tablet 0.25 Mg PO HS LAST DOSE GIVEN: DATE: TIME: NEXT DOSE DUE: DATE: TIME: Lisinopril 5 Mg Tablet 5 Mg PO DAILY LAST DOSE GIVEN: DATE: TIME: NEXT DOSE DUE: DATE: TIME: Proair Hfa Inhaler (Albuterol Sulfate) 8.5 Gm Hfa.aer.ad 1 Puff INH PRN Q6HRS PRN LAST DOSE GIVEN: DATE: TIME: NEXT DOSE DUE: DATE: TIME: Vitals/I & O Vital Sign - Last 24 Hours 12/27/11/18/17 11/18/17 11/18/17 10:13 10:15 10:48 11:07 Temp 98.1 Pulse 96 87 Resp 20 20 B/P (MAP) 127/83 128/94 (105) Pulse Ox 97 97 O2 Delivery Room Air Room Air Room Air 11/18/17 11/18/17 11/18/17 11/18/17 15:04 16:48 19:06 19:20 Temp 97.9 98.5 Pulse 91 95 Resp 20 20 B/P (MAP) 146/94 (111) 122/82 (95) Pulse Ox 96 100 100 O2 Delivery Room Air Room Air Room Air Room Air 11/18/17 11/18/17 11/18/17 11/18/17 20:31 20:50 21:35 22:12 Temp 98.7 Pulse 80 Resp 18 18 18 B/P (MAP) 111/75 (87) Pulse Ox 100 95 O2 Delivery Room Air Room Air Nasal Cannula Nasal Cannula O2 Flow Rate 2.0 2.0 11/19/17 05:35 Temp 98.4 Pulse 83 Resp 18 B/P (MAP) 116/79 (91) Pulse Ox 95 O2 Delivery Nasal Cannula O2 Flow Rate 2.0 Intake and Output 11/18/17 11/18/17 11/19/17 15:00 23:00 07:00 Intake Total 240 ml 1160 ml 0 ml Balance 240 ml 1160 ml 0 ml IRINA BOATENG APRN Nov 19, 2017 09:10
[2017-11-19 11:04] VITALS: BP 144/93
[2017-11-19] MEDS: MAGNESIUM CHLORIDE ER 64 MG TABLET.ER PO SCH (11:47)
[2017-11-19] MEDS: traMADol 50 MG TABLET PO SCH (11:49)
[2017-11-19] MEDS: LISINOPRIL 5 MG TABLET. PO SCH (11:50)
[2017-11-19] MEDS: NICOTINE 21MG PATCH. TD SCH (11:54)
--- NOTE | 2017-11-19 13:31 | RAD ---
MR#: [id number] Date of Study: 11/18/2017 Ordering Physician: RADHA YBARRA, Referring Physician: ALISON BREWER Tech: RT Radha (R) (N) APPROVED REPORT Test Type: Pharmacological Stress Nurse/Tech: RT Radha (R) (N) Test Indications: Chest Pain Cardiac History: None Medications: See EHR Resting Heart Rate: 92 bpm Resting Blood Pressure: 149/93mmHg Pharm. Details Pharmacologic stress testing was performed using 0.4mg per 5ml of regadenoson given intravenously ove r 7-10 seconds. POST EXERCISE Reason for Termination: Infusion complete Max HR: 124 bpm Max Blood Pressure: 138/82mmHg Blood Pressure response to exercise: Normal blood pressure response during stress. Heart Rate response to exercise: increased Chest Pain: Yes. Increased slightly from 4 to 6 Arrhythmia: No. ST Change: No. Imaging Protocol IMAGE PROTOCOL: Stress Tc-99m/rest Tc-99m 2 days Rest: Stress: Viability: Radiopharm.Tc99m [id number] Sestamibi Nbiu48hSh 33mCi Duration 20min. 20min. Img Date 11/19/2017 11/18/2017 Inj-Img [id number]. 40min. Stress Admin Site: IV - Left AntecubitalAdministrator: RT Radha (R)(N) Viability Admin Site:IV - Left AntecubitalAdministrator: RT Radha (R)(N) STRESS DATA End Diast. Vol.129.0mlAv. Heart Rate98.0bpm LVEDV index BSA2.0mlCardiac Output0.1L/min End Syst. Vol.42.0mlCO Index BSA8.5L/min LVESV index BSA1.0mlMyocardial Yzkm949.0g Eject. Ztrkrxeh20.0% Stress Rates Pk. Fill Rate3.59EDV/secLVtime Pk. Fill 152.62msec Pk. Empty Rate3.26ESV/secLVtime Pk. Oglix674.70msec 1/3 Pk. Fill1.14EDV/sec Stress Scores Regional WT1.00Summed WT4.00 Regional WM0.00Summed WM3.00 LV Perfusion There is a moderate to large sized anterior perfusion defect that is mostly reversible suggestive of impaired perfusion reserve and ischemia in the anterior wall and apex. There is also note of mild TID suggestive of balanced multivessel disease. Wall Motion Grossly normal LVEF at 60%. LV Perf. Quant 17 Seg. SSS9.00 Stress Defect Extent (% LAD)32.50Rest Defect Extent (% LAD)Rev. Defect Extent (% LAD)0.00 Stress Defect Extent (% LCX) 2.50Rest Defect Extent (% LCX)Rev. Defect Extent (% LCX)0.00 Stress Defect Extent (% RCA)0.00Rest Defect Extent (% RCA)Rev. Defect Extent (% RCA)0.00 Stress Defect Extent (% ALVIN)17.00Rest Defect Extent (% ALVIN)Rev. Defect Extent (% ALVIN)0.00 Other Information Quality:Average Risk Assessment: Moderate-High Risk Conclusion 1. No evidence of stress induced EKG changes. 2. Large anterior wall reversible perfusion defect suggestive of LAD territory disease. 3. Normal LVEF at 60% 4. Moderate to high risk study Recommendations Cardiac cath. Signed by : Radha Ybarra, Electronically Approved : 11/19/2017 13:30:54
[2017-11-19] MEDS ORDERED: ENOXAPARIN ** NOTE DOSE ** SYRINGE SQ ONE (14:00)
[2017-11-19] MEDS ORDERED: Magnesium Chloride Er PO (14:06)
[2017-11-19] MEDS ORDERED: Nicotine 21MG TD (14:06)
[2017-11-19 14:56] VITALS: BP 134/92
--- NOTE | 2017-11-19 15:56 | PDOC ---
SUBJECTIVE: LATE DICTATION FOR PROGRESS NOTE-PATIENT SEEN ON 11/18 OBJECTIVE: Problems: ASSESSMENT: 1. Chest pain suspicious for angina. Two troponins negative. EKG not available at this present time. FIRST PART OF LEXISCAN ABNORMAL 2. Tobacco use disorder. 3. Morbid obesity. 4. Sleep apnea suspect.-FAILED NOCTURNAL OXIMITRY 5. Previous history of rapid heart rate. 6. Hypertension. 7. Type 2 diabetes. 8. Fibromyalgia. 9. Chronic obstructive pulmonary disease. 9. History of migraine headaches. Vital Signs: Vital Signs Date Time Temp Pulse Resp B/P (MAP) Pulse Ox O2 Delivery O2 Flow Rate FiO2 11/19/17 14:56 98.8 104 20 134/92 (106) 97 Room Air 11/19/17 08:00 2.0 I & O Intake and Output 11/19/17 07:00 Intake Total 1400 ml Balance 1400 ml Intake Oral 1400 ml # Voids 6 Labs: Laboratory Tests Test 11/17/17 16:29 11/17/17 21:05 11/18/17 05:48 11/18/17 07:36 Glucose (Fingerstick) 140 mg/dL (70-99) 115 mg/dL (70-99) 95 mg/dL (70-99) White Blood Count 6.7 x10^3/uL (4.0-11.0) Red Blood Count 4.53 x10^6/uL (3.50-5.40) Hemoglobin 13.6 g/dL (12.0-15.5) Hematocrit 39.4 % (36.0-47.0) Mean Corpuscular Volume 87 fL (79-100) Mean Corpuscular Hemoglobin 30 pg (25-35) Mean Corpuscular Hemoglobin Concent 35 g/dL (31-37) Red Cell Distribution Width 14.4 % (11.5-14.5) Platelet Count 209 x10^3/uL (140-400) Neutrophils (%) (Auto) 59 % (31-73) Lymphocytes (%) (Auto) 27 % (24-48) Monocytes (%) (Auto) 11 % (0-9) Eosinophils (%) (Auto) 2 % (0-3) Basophils (%) (Auto) 1 % (0-3) Neutrophils # (Auto) 4.0 x10^3uL (1.8-7.7) Lymphocytes # (Auto) 1.8 x10^3/uL (1.0-4.8) Monocytes # (Auto) 0.7 x10^3/uL (0.0-1.1) Eosinophils # (Auto) 0.1 x10^3/uL (0.0-0.7) Basophils # (Auto) 0.0 x10^3/uL (0.0-0.2) Sodium Level 142 mmol/L (136-145) Potassium Level 4.1 mmol/L (3.5-5.1) Chloride Level 108 mmol/L (98-107) Carbon Dioxide Level 28 mmol/L (21-32) Anion Gap 6 (6-14) Blood Urea Nitrogen 6 mg/dL (7-20) Creatinine 0.8 mg/dL (0.6-1.0) Estimated GFR (Cockcroft-Gault) 79.4 Glucose Level 97 mg/dL (70-99) Calcium Level 9.0 mg/dL (8.5-10.1) Triglycerides Level 70 mg/dL (0-150) Cholesterol Level 167 mg/dL (0-200) LDL Cholesterol, Calculated 115 mg/dL (0-100) VLDL Cholesterol, Calculated 14 mg/dL (0-40) Non-HDL Cholesterol Calculated 129 mg/dL (0-129) HDL Cholesterol 38 mg/dL (40-60) Cholesterol/HDL Ratio 4.0 Test 11/18/17 11:41 11/18/17 16:25 11/18/17 19:44 11/19/17 08:04 Glucose (Fingerstick) 91 mg/dL (70-99) 115 mg/dL (70-99) 112 mg/dL (70-99) 97 mg/dL (70-99) Test 11/19/17 11:50 Glucose (Fingerstick) 102 mg/dL (70-99) Physical Exam: HEENT: UNCHANGE, LUNGS CLEAR, CVRRR, EXT WITHOUT EDEMA ASSESSMENT: SEE PROBLEMS PLAN: SECOND PART OF TLEXICAN TEST ON 11/19. O2 AT NIGHT . SCHEDULE SLEEP STUDY. LORETA ELENA DO Nov 19, 2017 15:56
--- NOTE | 2017-11-19 16:01 | PDOC3 ---
Discharge Summary Visit Information Date of Admission: Nov 17, 2017 Date of Discharge: Nov 19, 2017 Final Diagnosis T: 1. Chest pain suspicious for angina. Two troponins negative. EKG not available at this present time. LEXISCAN ABNORMAL-MODERATE TO HIGH RISK STUDY 2. Tobacco use disorder. 3. Morbid obesity. 4. Sleep apnea suspect.-FAILED NOCTURNAL OXIMITRY 5. Previous history of rapid heart rate. 6. Hypertension. 7. Type 2 diabetes. 8. Fibromyalgia. 9. Chronic obstructive pulmonary disease. 9. History of migraine headaches. Problems: Brief Hospital Course Allergies Allergies Coded Allergies Type Severity Reaction Last Updated Verified Penicillins Allergy Severe 03/19/14 Yes levofloxacin Allergy Severe Anaphylaxis 11/07/16 Yes acetaminophen Allergy Unknown 02/15/14 Yes egg Allergy Unknown 02/15/14 Yes latex Allergy Unknown 02/15/14 Yes theophylline Allergy Unknown 02/15/14 Yes Estrogens Adverse Reaction Unknown blisters in mouth 10/02/14 No Vital Signs Vital Signs Date Time Temp Pulse Resp B/P (MAP) Pulse Ox O2 Delivery O2 Flow Rate FiO2 11/19/17 14:56 98.8 104 20 134/92 (106) 97 Room Air 11/19/17 08:00 2.0 Lab Results Laboratory Tests Test 11/17/17 16:29 11/17/17 21:05 11/18/17 05:48 11/18/17 07:36 Glucose (Fingerstick) 140 mg/dL (70-99) 115 mg/dL (70-99) 95 mg/dL (70-99) White Blood Count 6.7 x10^3/uL (4.0-11.0) Red Blood Count 4.53 x10^6/uL (3.50-5.40) Hemoglobin 13.6 g/dL (12.0-15.5) Hematocrit 39.4 % (36.0-47.0) Mean Corpuscular Volume 87 fL (79-100) Mean Corpuscular Hemoglobin 30 pg (25-35) Mean Corpuscular Hemoglobin Concent 35 g/dL (31-37) Red Cell Distribution Width 14.4 % (11.5-14.5) Platelet Count 209 x10^3/uL (140-400) Neutrophils (%) (Auto) 59 % (31-73) Lymphocytes (%) (Auto) 27 % (24-48) Monocytes (%) (Auto) 11 % (0-9) Eosinophils (%) (Auto) 2 % (0-3) Basophils (%) (Auto) 1 % (0-3) Neutrophils # (Auto) 4.0 x10^3uL (1.8-7.7) Lymphocytes # (Auto) 1.8 x10^3/uL (1.0-4.8) Monocytes # (Auto) 0.7 x10^3/uL (0.0-1.1) Eosinophils # (Auto) 0.1 x10^3/uL (0.0-0.7) Basophils # (Auto) 0.0 x10^3/uL (0.0-0.2) Sodium Level 142 mmol/L (136-145) Potassium Level 4.1 mmol/L (3.5-5.1) Chloride Level 108 mmol/L (98-107) Carbon Dioxide Level 28 mmol/L (21-32) Anion Gap 6 (6-14) Blood Urea Nitrogen 6 mg/dL (7-20) Creatinine 0.8 mg/dL (0.6-1.0) Estimated GFR (Cockcroft-Gault) 79.4 Glucose Level 97 mg/dL (70-99) Calcium Level 9.0 mg/dL (8.5-10.1) Triglycerides Level 70 mg/dL (0-150) Cholesterol Level 167 mg/dL (0-200) LDL Cholesterol, Calculated 115 mg/dL (0-100) VLDL Cholesterol, Calculated 14 mg/dL (0-40) Non-HDL Cholesterol Calculated 129 mg/dL (0-129) HDL Cholesterol 38 mg/dL (40-60) Cholesterol/HDL Ratio 4.0 Test 11/18/17 11:41 11/18/17 16:25 11/18/17 19:44 11/19/17 08:04 Glucose (Fingerstick) 91 mg/dL (70-99) 115 mg/dL (70-99) 112 mg/dL (70-99) 97 mg/dL (70-99) Test 11/19/17 11:50 Glucose (Fingerstick) 102 mg/dL (70-99) Brief Hospital Course Ms. Galdamez is a 42 old [sex] who presented with [ ANGINA SYMPTOMS. SUBSEQUENT WORK-UP REVEALED A MODERATE-HIGH RISH LEXISCAN STUDY. SHE ALSO HAD AN ABNORMAL NOCTURNAL OXIMETRY. HER TROPONISN WERE NEGATIVE. SHE WILL BE TRANSFERRED TO [facility] IN STABLE CONDITION FOR A CATH TOMORROW.] Discharge Information Condition at Discharge: Stable Disposition/Orders: D/C to Another Facility Dischare Medications Current Medications Aspirin (Children'S Aspirin) 324 mg 1X ONCE PO Last administered on 01:50; Start 11/17/17 at 01:45; Stop 11/17/17 at 02:01; Status DC Nitroglycerin (Nitrostat) 0.4 mg PRN Q5MIN PRN SL CP RATING > 1/10 Last administered on 11/17/17 03:08; Start 11/17/17 at 01:45; Stop 11/17/17 at 09 :09; Status DC Potassium Chloride (Klor-Con) 20 meq 1X ONCE PO Last administered on 03:16; Start 11/17/17 at 03:30; Stop 11/17/17 at 03:31; Status DC Magnesium Chloride (Mag Delay) 64 mg DAILY PO Last administered on 11/19/17 11:47; Start 11/17/17 at 03:30 Ondansetron HCl (Zofran) 4 mg PRN Q4HRS PRN IV NAUSEA/VOMITING Last administered on 11/17/17 03:19; Start 11/17/17 at 03:15; Stop 11/18/17 at 03 :14; Status DC Nitroglycerin (Nitrostat) 0.4 mg PRN Q5MIN PRN SL CHEST PAIN; Start 11/17/17 at 03:15; Stop 11/18/17 at 03:14; Status DC Albuterol/ Ipratropium (Duoneb) 3 ml RTQID NEB Last administered on 11/17/17 21:10; Start 11/17/17 at 08:00; Stop 11/18/17 at 07:59; Status DC Nicotine (Nicoderm Cq 21mg) 1 patch DAILY TD Last administered on 11/19/17 11 :54; Start 11/17/17 at 09:00 Dextrose 12.5 gm PRN Q15MIN PRN IV SEE COMMENTS; Start 11/17/17 at 05:00 Albuterol Sulfate (Ventolin Hfa) 1 puff PRN Q6HRS PRN INH SHORTNESS OF BREATH; Start 11/17/17 at 09:15; Stop 11/17/17 at 09:15; Status DC Lisinopril (Prinivil) 5 mg DAILY PO Last administered on 11/19/17 11:50; Start 11/17/17 at 09:15 Montelukast Sodium (Singulair) 10 mg HS PO Last administered on 11/18/17 20: 31; Start 11/17/17 at 21:00 Ropinirole HCl (Requip) 0.25 mg HS PO Last administered on 11/18/17 20:31; Start 11/17/17 at 21:00 Tramadol HCl (Ultram) 50 mg BID PO Last administered on 11/19/17 11:49; Start 11/17/17 at 09:15 Albuterol Sulfate (Ventolin) 2.5 mg PRN Q6HRS PRN NEB SHORTNESS OF BREATH; Start 11/17/17 at 09:15 Ketorolac Tromethamine (Toradol) 30 mg 1X ONCE IV Last administered on 11:04; Start 11/17/17 at 09:45; Stop 11/17/17 at 09:47; Status DC Ketorolac Tromethamine (Toradol) 30 mg PRN Q6HRS PRN IV PAIN Last administered on 11/19/17 02:42; Start 11/17/17 at 09:30; Stop 11/22/17 at 09:29 Regadenoson (Lexiscan) 0.4 mg 1X ONCE IV Last administered on 11/18/17 14:43 ; Start 11/18/17 at 13:00; Stop 11/18/17 at 13:01; Status DC Ondansetron HCl (Zofran) 4 mg PRN Q4HRS PRN IV NAUSEA/VOMITING; Start at 13:45 Albuterol/ Ipratropium (Duoneb) 3 ml RTQID NEB Last administered on 11/18/17 21:23; Start 11/18/17 at 16:00 Enoxaparin Sodium (Lovenox 120mg Syringe) 120 mg 1X ONCE SQ ; Start 11/19/17 at 14:00; Stop 11/19/17 at 14:10; Status DC Active Scripts Active Reported [Hormone Merari] 0.5 Strip SL BID LAST DOSE GIVEN: DATE: TIME: NEXT DOSE DUE: DATE: TIME: Adipex-P (Phentermine Hcl) 37.5 Mg Tablet 37.5 Mg PO DAILY LAST DOSE GIVEN: DATE: TIME: NEXT DOSE DUE: DATE: TIME: Tramadol Hcl (Tramadol HCl) 50 Mg Tablet 50 Mg PO BID LAST DOSE GIVEN: DATE: TIME: NEXT DOSE DUE: DATE: TIME: Montelukast Sodium Tablet (Montelukast Sodium) 10 Mg Tablet 10 Mg PO HS LAST DOSE GIVEN: DATE: TIME: NEXT DOSE DUE: DATE: TIME: Ropinirole Hcl 0.25 Mg Tablet 0.25 Mg PO HS LAST DOSE GIVEN: DATE: TIME: NEXT DOSE DUE: DATE: TIME: Lisinopril 5 Mg Tablet 5 Mg PO DAILY LAST DOSE GIVEN: DATE: TIME: NEXT DOSE DUE: DATE: TIME: Proair Hfa Inhaler (Albuterol Sulfate) 8.5 Gm Hfa.aer.ad 1 Puff INH PRN Q6HRS PRN LAST DOSE GIVEN: DATE: TIME: NEXT DOSE DUE: DATE: TIME: Patient Instructions Patient Instuctions TRANSFER TO [facility] FOR LORETA CUELLAR DO Nov 19, 2017 16:01
== END 2017-11-19 16:15 | disposition short-term general hospital (02) | DRG 311 ==
LOC: ER 01:35 → 1 SOUTH 03:00
PROVIDERS: ADMIT Family Medicine; ATTEND Family Medicine
DX: I20.9 Angina pectoris, unspecified (principal); E46 Unspecified protein-calorie malnutrition; E66.01 Morbid (severe) obesity due to excess calories; E83.42 Hypomagnesemia; Z68.42 Body mass index [BMI] 45.0-49.9, adult; E11.9 Type 2 diabetes mellitus without complications; F17.200 Nicotine dependence, unspecified, uncomplicated; G89.29 Other chronic pain; G47.30 Sleep apnea, unspecified; I10 Essential (primary) hypertension; J44.9 Chronic obstructive pulmonary disease, unspecified; M79.7 Fibromyalgia; Z82.49 Family history of ischemic heart disease and other diseases of the circulatory system; Z83.3 Family history of diabetes mellitus; G43.909 Migraine, unspecified, not intractable, without status migrainosus; Z88.0 Allergy status to penicillin; Z88.8 Allergy status to other drugs, medicaments and biological substances; Z88.1 Allergy status to other antibiotic agents; Z91.040 Latex allergy status; Z90.49 Acquired absence of other specified parts of digestive tract; E87.6 Hypokalemia; Z71.6 Tobacco abuse counseling
CPT/HCPCS: 36415; 71010; 78452; 80048; 80053; 80061; 80307; 81001; 82550; 82947; 83690; 83735; 83880; 84484; 85025; 85379; 93005; 93017; 93306; 94640; 94799; 96374; 96375; 96376; 99406; A9500; G0480; J1650; J1885; J2405; J2785; J7620; 99285-25; G0479

== ENCOUNTER 2018-01-17 20:45 | Emergency (ER) | payer BC, OTHER ==
[~2018-01-17] VITALS: Ht 165.1 cm; Wt 117.0 kg
[~2018-01-17 20:45] MED LIST changes: +HORMONE TROCHE SL; +LISI-338 PO; +MONT10TA9 PO; +Magnesium Chloride Er PO; +Nicotine 21MG TD; +PHEN37.598 PO; +ROPI0.252 PO
[2018-01-17] MEDS ORDERED: IBUPROFEN 600 MG TABLET. PO ONE (21:15)
[2018-01-17] MEDS ORDERED: IV NORMAL SALINE 1,000ML 1,000 ML IV SCH (21:30)
[2018-01-17 21:43] LABS: BACTERIA,URINE 0 /HPF (0-FEW); BILIRUBIN,URINE NEG (NEG); CLARITY,URINE HAZY; COLOR,URINE YELLOW; GLUCOSE,URINE NEG (NEG); NITRITE,URINE NEG (NEG); RBC,URINE OCC /HPF (0-2); SQUAMOUS EPITHELIAL CELL,UR FEW /LPF; UROBILINOGEN,URINE 4 mg/dL (0.2 mg/dL); WBC,URINE 0 /HPF (0-4)
[2018-01-17 21:47] LABS: INFLUENZA A PATIENT NEGATIVE (NEGATIVE); INFLUENZA B PATIENT NEGATIVE (NEGATIVE)
[2018-01-17 22:50] LABS: BASO # 0.1 x10^3/uL (0.0-0.2); BASO % 1 % (0-3); EOS # 0.2 x10^3/uL (0.0-0.7); EOS % 2 % (0-3); HEMATOCRIT 39.3 % (36.0-47.0); HEMOGLOBIN 13.7 g/dL (12.0-15.5); LYMPH # 1.7 x10^3/uL (1.0-4.8); LYMPH % 25 % (24-48); MEAN CORPUSCULAR HEMOGLOBIN 30 pg (25-35); MEAN CORPUSCULAR HGB CONC 35 g/dL (31-37); MEAN CORPUSCULAR VOLUME 86 fL (79-100); MONO # 0.8 x10^3/uL (0.0-1.1); MONO % 13 % (0-9); NEUT # 3.9 x10^3uL (1.8-7.7); NEUT % 59 % (31-73); PLATELET COUNT 242 x10^3/uL (140-400); RED BLOOD COUNT 4.56 x10^6/uL (3.50-5.40); WHITE BLOOD COUNT 6.7 x10^3/uL (4.0-11.0)
[2018-01-17 22:54] LABS: CREATININE 0.9 mg/dL (0.6-1.0); GFR 69.3; POTASSIUM 3.7 mmol/L (3.5-5.1)
--- NOTE | 2018-01-17 23:26 | EKG ---
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
--- NOTE | 2018-01-17 23:31 | PHYS DOC ---
General Chief Complaint: FEVER Stated Complaint: FEVER N/V CHILLS BODY ACHES DIFF BREATHING Time Seen by MD: 21:14 Source: patient, old records Exam Limitations: no limitations Problems: History of Present Illness Initial Comments 42-year-old female who comes in the ED with above complaints starting earlier this afternoon. She denies headache focal weakness or chest pain, states that she ran out of her nebulizer vials of albuterol and has not followed up with her doctor. She is concerned about possible pneumonia or influenza, on arrival temperature 100.4 F and heart rate is 126 bpm otherwise vital signs are unremarkable. No pre- arrival treatment the patient is anxious on arrival and obese. Timing/Duration: 4-6 hours Severity: moderate Modifying Factors: improves with medication Associated Symptoms: fever/chills, headaches, nausea/vomiting, shortness of breath, other Allergies: Coded Allergies: Penicillins (Verified Allergy, Severe, 03/19/14) levofloxacin (Verified Allergy, Severe, Anaphylaxis, 11/07/16) acetaminophen (Verified Allergy, Unknown, 02/15/14) egg (Verified Allergy, Unknown, 02/15/14) latex (Verified Allergy, Unknown, 02/15/14) theophylline (Verified Allergy, Unknown, 02/15/14) Estrogens (Unverified Adverse Reaction, Unknown, blisters in mouth, ) Past Medical History Medical History: COPD, diabetes, fibromyalgia, migraines, other Surgical History: appendectomy, cholecystectomy, tonsillectomy, other Family History Significant Family History: no pertinent family hx Social History Smoker: cigarettes Alcohol: none Drugs: none Review of Systems Constitutional: see HPI EENTM: denies ear pain, nose congestion, denies throat pain, denies throat swelling Respiratory: see HPI Cardiovascular: denies chest pain, denies palpitations, denies syncope Gastrointestinal: see HPI, denies abdominal pain Genitourinary: denies dysuria, denies frequency, denies hematuria Musculoskeletal: see HPI, denies joint swelling, denies neck pain Hematologic/Lymphatic: denies blood clots, denies easy bleeding, denies easy bruising Physical Exam General Appearance: mild distress (anxious, ill-appearing), obese Eyes: bilateral eye normal inspection, bilateral eye PERRL, bilateral eye EOMI Ear, Nose, Throat: hearing grossly normal, normal ENT inspection (pharynx erythematous without exudate airway is patent) Neck: non-tender, full range of motion, supple Respiratory: chest non-tender, no respiratory distress, decreased breath sounds , wheezing Gastrointestinal: non tender, soft Extremities: non-tender, normal inspection Neurologic/Psychiatric: bottle gauger II-XII nml as tested, no motor/sensory deficits, alert, oriented x 3 Orders, Labs, Meds EKG: NSR 99bpm, no ST segment elevation. Interpreted by me. Chest x-ray PA and lateral: Increased perihilar markings no discrete infiltrates , cardiac and mediastinal structures appear normal. Interpreted by me. Influenza studies, lab and urine studies unremarkable other than d-dimer elevated at 0.79 I rechecked the patient and her heart rate has normalized to normal sinus rhythm in the 80s without any intervention other than Motrin. PE is unlikely, however I did discuss CTA of the chest and the patient declines at this time. I discussed treatment options and will cover with antibiotics and replacement of patient's albuterol nebulizer treatments as she does not want to wait to get any treatments further here. I discussed signs and symptoms to monitor for as well as indications for urgent return, her questions were answered she expressed agreement and understanding of the treatment plan. Departure Time of Disposition: 00:02 Disposition: 01 HOME, SELF-CARE Diagnosis: pharyngitis, bronchitis, COPD Condition: GOOD Patient Instructions: Fever, Adult, [id number] Additional Instructions: Rest, no strenuous activity. OTC ibuprofen as needed. Aggressive hydration with gatorade, water. Rx: bactrim DS, guaifenesin/codeine syrup, albuterol nebulizer Follow up with your doctor in 5-7 days for recheck. Return to ED with new or changing symptoms. GONZALO UGARTE DO Jan 17, 2018 23:31
[2018-01-18] MEDS ORDERED: guaiFENesin/CODEINE 100mg/10mg 5 ML LIQUID PO PRN
[2018-01-18] MEDS ORDERED: ALBUTEROL 3ML X5 NEB STARTPACK. INH ONE
[2018-01-18] MEDS ORDERED: SULF1TAB24 PO (00:01)
[2018-01-18] MEDS ORDERED: GUAI118L13 PO (00:01)
[2018-01-18] MEDS ORDERED: ALBU2.5V5 NEB (00:01)
[2018-01-18] MEDS ORDERED: guaiFENesin/CODEINE 100mg/10mg 5 ML LIQUID ONE (00:08)
[2018-01-18] MEDS ORDERED: SMZ/TMP 800/160MG TABLET. PO ONE ×2 (00:08)
[2018-01-18] MEDS ORDERED: ALBUTEROL SULFATE 2.5 MG/3 ML NEBU. ONE (00:10)
[2018-01-18 00:20] VITALS: BP 144/82
--- NOTE | 2018-01-18 07:40 | RAD ---
Chest, 2 views, 01/17/2018: History: Fever, cough, chest tightness Comparison is made to a study from 11/17/2017. The heart size and pulmonary vascularity are normal. The lungs are clear. There is no evidence of pleural fluid. IMPRESSION: No acute cardiopulmonary abnormality is detected.
== END 2018-01-18 00:20 | disposition home or self-care (01) ==
LOC: ER 20:45
DX: J02.9 Acute pharyngitis, unspecified (principal); J44.9 Chronic obstructive pulmonary disease, unspecified; F17.210 Nicotine dependence, cigarettes, uncomplicated; G43.909 Migraine, unspecified, not intractable, without status migrainosus; E11.9 Type 2 diabetes mellitus without complications; M79.7 Fibromyalgia; E66.9 Obesity, unspecified; Z90.49 Acquired absence of other specified parts of digestive tract; Z68.42 Body mass index [BMI] 45.0-49.9, adult; Z88.0 Allergy status to penicillin; Z88.8 Allergy status to other drugs, medicaments and biological substances; Z88.6 Allergy status to analgesic agent; Z88.1 Allergy status to other antibiotic agents; Z91.040 Latex allergy status
CPT/HCPCS: 36415; 71046; 80048; 81001; 83605; 84484; 85025; 85379; 87040; 87804; 93005; 94640; 96360; 99285-25; J7030

== ENCOUNTER 2018-03-23 21:17 | Observation (INO) | payer BC, OTHER ==
[~2018-03-23] VITALS: Ht 160 cm; Wt 118.4 kg
[~2018-03-23 21:17] MED LIST changes: +GUAI118L13 PO; +SULF1TAB24 PO
--- NOTE | 2018-03-23 21:43 | EKG ---
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
[2018-03-23 21:52] LABS: BASO # 0.1 x10^3/uL (0.0-0.2); BASO % 1 % (0-3); EOS # 0.2 x10^3/uL (0.0-0.7); EOS % 2 % (0-3); HEMOGLOBIN 14.4 g/dL (12.0-15.5); LYMPH # 4.2 x10^3/uL (1.0-4.8); LYMPH % 38 % (24-48); MEAN CORPUSCULAR HEMOGLOBIN 30 pg (25-35); MEAN CORPUSCULAR HGB CONC 34 g/dL (31-37); MEAN CORPUSCULAR VOLUME 86 fL (79-100); MONO # 0.8 x10^3/uL (0.0-1.1); MONO % 7 % (0-9); NEUT # 5.6 x10^3uL (1.8-7.7); NEUT % 52 % (31-73); PLATELET COUNT 278 x10^3/uL (140-400); RED BLOOD COUNT 4.86 x10^6/uL (3.50-5.40); RED CELL DISTRIBUTION WIDTH 13.8 % (11.5-14.5); WHITE BLOOD COUNT 10.9 x10^3/uL (4.0-11.0)
[2018-03-23 22:00] LABS: ALBUMIN 3.3 g/dL (3.4-5.0); ALBUMIN/GLOBULIN RATIO 0.8 (1.0-1.7); CALCIUM 8.8 mg/dL (8.5-10.1); CREATININE 0.9 mg/dL (0.6-1.0); POTASSIUM 3.4 mmol/L (3.5-5.1); TOTAL BILIRUBIN 0.3 mg/dL (0.2-1.0); TOTAL PROTEIN 7.4 g/dL (6.4-8.2)
[2018-03-23] MEDS ORDERED: ASPIRIN 81 MG TAB.CHEW PO ONE (22:00)
[2018-03-23] MEDS ORDERED: MORPHINE SULFATE 4 MG/ML DISP.SYRIN. ONE (22:17)
[2018-03-23] MEDS ORDERED: NITROGLYCERIN SUBLINGUAL 0.4 MG BOTTLE OF 25. SL PRN (22:30)
[2018-03-23] MEDS ORDERED: MORPHINE SULFATE 4 MG/ML DISP.SYRIN. IV ONE (22:30)
[2018-03-23] MEDS ORDERED: MORPHINE SULFATE 2 MG/ML DISP.SYRIN. IV ONE (22:30)
[2018-03-23] MEDS: ONDANSETRON PF 4 MG/2 ML VIAL. IV PRN (22:33)
[2018-03-23] MEDS ORDERED: IOHEXOL 300 MG/ML 75 ML VIAL. IV ONE (23:00)
--- NOTE | 2018-03-23 23:07 | PHYS DOC ---
Past History Past Medical History: COPD, Diabetes, Fibromyalgia, Hypertension, Migraines, Other Additional Past Medical Histor: Resting Tachycardia Past Surgical History: Appendectomy, Cholecystectomy, Hysterectomy, Tonsillectomy, Other Smoking: Cigarettes, Less than 1pk/day Alcohol Use: None Drug Use: None Adult General Chief Complaint Chief Complaint: CHEST PAIN HPI HPI 43-year-old female with a history of known heart disease status post angioplasty in October of this past year, now presents the emergency room complaining of chest pain. Patient had angioplasty at [facility] by Dr Hendrickson. Tonight she also chest pressure or shortness of breath. Pain radiating to her neck and left arm. Worse with exertion relieved by rest. No pleuritic pain and pain is not reproducible with palpation or movement. Patient has no productive cough or fever. Review of Systems Review of Systems Constitutional: Denies fever or chills [] Eyes: Denies change in visual acuity, redness, or eye pain [] HENT: Denies nasal congestion or sore throat [] Respiratory: Denies cough or shortness of breath [] Cardiovascular: No additional information not addressed in HPI [] GI: Denies abdominal pain, nausea, vomiting, bloody stools or diarrhea [] : Denies dysuria or hematuria [] Musculoskeletal: Denies back pain or joint pain [] Integument: Denies rash or skin lesions [] Neurologic: Denies headache, focal weakness or sensory changes [] Endocrine: Denies polyuria or polydipsia [] All other systems were reviewed and found to be within normal limits, except as documented in this note. Current Medications Current Medications Current Medications Medications (Trade) Dose Ordered Sig/Santo Start Time Stop Time Status Last Admin Dose Admin Aspirin (Children'S Aspirin) 324 mg 1X ONCE 03/23/18 22:00 03/23/18 22:01 DC 03/23/18 21:45 324 MG Info (Do NOT chart on this entry -- for MONITORING) 1 each PRN DAILY PRN 03/23/18 23:15 03/25/18 23:14 Iohexol (Omnipaque 300 Mg/ml) 75 ml 1X ONCE 03/23/18 23:00 03/23/18 23:01 DC Morphine Sulfate (Morphine 2mg Syringe) 2 mg 1X ONCE 03/23/18 22:30 03/23/18 22:31 DC Morphine Sulfate (Morphine 4mg Syringe) 2 mg PRN Q2HR PRN 03/23/18 22:30 03/24/18 22:29 Nitroglycerin (Nitrostat) 0.4 mg PRN Q5MIN PRN 03/23/18 22:30 03/24/18 22:29 03/23/18 22:36 0.4 MG Ondansetron HCl (Zofran) 4 mg PRN Q4HRS PRN 03/23/18 22:30 03/24/18 22:29 03/23/18 22:33 4 MG Sodium Chloride 1,000 ml @ 125 mls/hr Q8H 03/23/18 22:18 03/24/18 22:17 Allergies Allergies Allergies Coded Allergies Type Severity Reaction Last Updated Verified Penicillins Allergy Severe 03/19/14 Yes levofloxacin Allergy Severe Anaphylaxis 11/07/16 Yes acetaminophen Allergy Unknown 02/15/14 Yes egg Allergy Unknown 02/15/14 Yes latex Allergy Unknown 02/15/14 Yes theophylline Allergy Unknown 02/15/14 Yes Estrogens Adverse Reaction Unknown blisters in mouth 10/02/14 No Physical Exam Physical Exam Well-appearing patient no acute distress. Nontender chest wall no crepitus. Clear lungs regular rhythm, mild tachycardia, benign abdomen Constitutional: Well developed, well nourished, no acute distress, non-toxic appearance. [] HENT: Normocephalic, atraumatic, bilateral external ears normal, oropharynx moist, no oral exudates, nose normal. [] Eyes: PERRLA, EOMI, conjunctiva normal, no discharge. [] Neck: Normal range of motion, no tenderness, supple, no stridor. [] Cardiovascular:Heart rate regular rhythm, no murmur [] Lungs & Thorax: Bilateral breath sounds clear to auscultation [] Abdomen: Bowel sounds normal, soft, no tenderness, no masses, no pulsatile masses. [] Skin: Warm, dry, no erythema, no rash. [] Back: No tenderness, no CVA tenderness. [] Extremities: No tenderness, no cyanosis, no clubbing, ROM intact, no edema. [] Neurologic: Alert and oriented X 3, normal motor function, normal sensory function, no focal deficits noted. [] Psychologic: Affect normal, judgement normal, mood normal. [] Current Patient Data Vital Signs Vital Signs Date Time Temp Pulse Resp B/P (MAP) Pulse Ox O2 Delivery O2 Flow Rate FiO2 03/23/18 22:36 95 140/79 03/23/18 21:17 98.8 14 95 Room Air Lab Results Laboratory Tests Test 03/23/18 21:30 White Blood Count 10.9 x10^3/uL (4.0-11.0) Red Blood Count 4.86 x10^6/uL (3.50-5.40) Hemoglobin 14.4 g/dL (12.0-15.5) Hematocrit 42.0 % (36.0-47.0) Mean Corpuscular Volume 86 fL (79-100) Mean Corpuscular Hemoglobin 30 pg (25-35) Mean Corpuscular Hemoglobin Concent 34 g/dL (31-37) Red Cell Distribution Width 13.8 % (11.5-14.5) Platelet Count 278 x10^3/uL (140-400) Neutrophils (%) (Auto) 52 % (31-73) Lymphocytes (%) (Auto) 38 % (24-48) Monocytes (%) (Auto) 7 % (0-9) Eosinophils (%) (Auto) 2 % (0-3) Basophils (%) (Auto) 1 % (0-3) Neutrophils # (Auto) 5.6 x10^3uL (1.8-7.7) Lymphocytes # (Auto) 4.2 x10^3/uL (1.0-4.8) Monocytes # (Auto) 0.8 x10^3/uL (0.0-1.1) Eosinophils # (Auto) 0.2 x10^3/uL (0.0-0.7) Basophils # (Auto) 0.1 x10^3/uL (0.0-0.2) D-Dimer (Hali) 1.04 mg/L (0.00-0.50) H Sodium Level 140 mmol/L (136-145) Potassium Level 3.4 mmol/L (3.5-5.1) L Chloride Level 105 mmol/L (98-107) Carbon Dioxide Level 22 mmol/L (21-32) Anion Gap 13 (6-14) Blood Urea Nitrogen 10 mg/dL (7-20) Creatinine 0.9 mg/dL (0.6-1.0) Estimated GFR (Cockcroft-Gault) 69.0 BUN/Creatinine Ratio 11 (6-20) Glucose Level 109 mg/dL (70-99) H Calcium Level 8.8 mg/dL (8.5-10.1) Total Bilirubin 0.3 mg/dL (0.2-1.0) Aspartate Amino Transferase (AST) 15 U/L (15-37) Alanine Aminotransferase (ALT) 23 U/L (14-59) Alkaline Phosphatase 80 U/L (46-116) Troponin I Quantitative < 0.017 ng/mL (0-0.055) Total Protein 7.4 g/dL (6.4-8.2) Albumin 3.3 g/dL (3.4-5.0) L Albumin/Globulin Ratio 0.8 (1.0-1.7) L EKG EKG Normal sinus tachycardia at 110 normal axis no STEMI interpreted by me[] Radiology/Procedures Radiology/Procedures Chest x-ray with chronic changes no acute disease interpreted by me[] Course & Med Decision Making Course & Med Decision Making Pertinent Labs and Imaging studies reviewed. (See chart for details) 43-year-old patient with a known history of coronary artery disease now signs and symptoms consistent with chest pain a possible cardiac etiology. EKG unremarkable. Troponin negative. Patient hemodynamically stable. She mild tachycardia on arrival but after further discussion patient clarified that she has a history of resting tachycardia and she has been noncompliant with her metoprolol. By mouth dose of metoprolol dose administered. Chest x-ray benign. CTA of the chest pending to rule out less likely possibility of PE in the setting of chest pain and tachycardia. Case was discussed with Dr. Renteria hospitalist on-call regarding inpatient admission for full cardiac workup [] Dragon Disclaimer Dragon Disclaimer This electronic medical record was generated, in whole or in part, using a voice recognition dictation system. Departure Departure: Impression: Primary Impression: Chest pain Additional Impression: Tachycardia Disposition: 09 ADMITTED INPATIENT Admitting Physician: Suyapa Renteria Condition: STABLE Referrals: PCP,NO (PCP) Problem Qualifiers YONIS AMAYA MD March 23, 2018 23:07
[2018-03-23] MEDS ORDERED: CONTRAST GIVEN MC PRN (23:15)
[2018-03-23] MEDS: IV NORMAL SALINE 1,000ML 1,000 ML IV SCH (23:29)
[2018-03-23] MEDS ORDERED: METOPROLOL TART IMMED RELEASE 25 MG TABLET PO ONE (23:30)
--- NOTE | 2018-03-24 01:54 | RAD ---
CTA Chest with contrast: Clinical History: Omni 300, 75ml IV. Chest pain, tachycardia, shortness of air, elevated d-dimer. Hx heart cath, COPD. No prior exams for comparison Shortness of breath. Axial helical images of the chest were obtained after the administration of 75 cc of IV Omni 300 and timed appropriately for a pulmonary arterial study. Conventional axial reconstruction was performed in addition to coronal, sagittal and bilateral oblique MIP (maximum intensity projection). This study was ordered to detect possible pulmonary embolism. There are no filling defects to suggest pulmonary embolism. The lungs and pleural margins are clear. There is no mediastinal or hilar lymphadenopathy. The thoracic aorta appears normal. Impression: 1. No evidence of pulmonary embolism. 2. No significant findings. PQRS Compliance Statement: One or more of the following individualized dose reduction techniques were utilized for this examination: 1. Automated exposure control 2. Adjustment of the mA and/or kV according to patient size 3. Use of iterative reconstruction technique Electronically signed by: Tab Reyna III, MD (03/24/2018 1:50 AM) [id number]
[2018-03-24 03:12] VITALS: BP 123/87
[2018-03-24] MEDS: MORPHINE SULFATE 4 MG/ML DISP.SYRIN. IV PRN ×3 (05:26→14:48)
[2018-03-24] MEDS: IV NORMAL SALINE 1,000ML 1,000 ML IV SCH (06:31)
[2018-03-24 06:46] LABS: CALCIUM 8.4 mg/dL (8.5-10.1); CREATININE 0.8 mg/dL (0.6-1.0); POTASSIUM 3.4 mmol/L (3.5-5.1)
[2018-03-24 06:52] LABS: BASO % 0 % (0-3); EOS # 0.2 x10^3/uL (0.0-0.7); EOS % 3 % (0-3); HEMATOCRIT 38.1 % (36.0-47.0); HEMOGLOBIN 12.9 g/dL (12.0-15.5); LYMPH # 3.8 x10^3/uL (1.0-4.8); LYMPH % 46 % (24-48); MEAN CORPUSCULAR HEMOGLOBIN 30 pg (25-35); MEAN CORPUSCULAR HGB CONC 34 g/dL (31-37); MEAN CORPUSCULAR VOLUME 88 fL (79-100); MONO # 0.8 x10^3/uL (0.0-1.1); MONO % 10 % (0-9); NEUT # 3.3 x10^3uL (1.8-7.7); NEUT % 41 % (31-73); PLATELET COUNT 242 x10^3/uL (140-400); RED BLOOD COUNT 4.35 x10^6/uL (3.50-5.40); WHITE BLOOD COUNT 8.1 x10^3/uL (4.0-11.0)
[2018-03-24] MEDS ORDERED: POTA20TA84 PO (07:49)
[2018-03-24] MEDS ORDERED: FURO20TA3 PO (07:49)
--- NOTE | 2018-03-24 08:01 | RAD ---
PORTABLE CHEST 1V History: Chest pain Comparison: 01/17/2018 Findings: Single view of the chest is submitted. There is no infiltrate, pneumothorax, or effusion. The pericardial cardiac silhouette is within normal limits in size. There is old healed left clavicle fracture as seen previously. Impression: 1. There is no evidence of acute cardiopulmonary disease. Electronically signed by: Moses Wallace MD (03/24/2018 7:58 AM) [email or web address]
[2018-03-24] MEDS ORDERED: LISINOPRIL 5 MG TABLET. PO SCH (09:00)
[2018-03-24] MEDS ORDERED: ALBUTEROL SULFATE 8GM INHALER. INH PRN (09:00)
[2018-03-24] MEDS ORDERED: traMADol 50 MG TABLET PO SCH (09:00)
[2018-03-24] MEDS ORDERED: POTASSIUM CHLORIDE 20 MEQ TABLET.ER. PO SCH (09:00)
[2018-03-24] MEDS ORDERED: NICOTINE 21MG PATCH. TD SCH (09:00)
[2018-03-24] MEDS ORDERED: FUROSEMIDE 20 MG TABLET PO SCH (09:00)
[2018-03-24] MEDS ORDERED: ALBUTEROL SULFATE 2.5 MG/3 ML NEBU. NEB PRN (09:00)
[2018-03-24] MEDS: ONDANSETRON PF 4 MG/2 ML VIAL. IV PRN (09:11)
[2018-03-24 09:14] VITALS: BP 114/79
--- NOTE | 2018-03-24 09:58 | PDOC2 ---
CONSULT Date of Admission DATE: 03/24/18 TIME: 09:56 Reason for Consult: Chest pain Problem List Problems Medical Problems: (1) Tachycardia Status: Acute History of Present Illness Ms Galdamez is a 43 year old female who presented for complaints of chest pain, mid sternal to left chest with radiation to left neck, shoulder and upper arm. She reports associated nausea. She was seen previously for similar symptoms in October 2017. At that time she underwent and echo which revealed normal LV function and a nuclear stress test which revealed a moderate anterior wall perfusion defect. She ultimately underwent cardiac catheterization which revealed normal coronaries with only minimal RCA disease of up to 20%. She complains of a significant amount of life stress right now. She was intermittently tearful this morning. She complains of sleep apnea and inability to afford CPAP. She also complains of migraines and worry that she may be having some kind of seizure activity. She had an episode recently while driving to work where she traveled 3 blocks in over 20 minutes and had no memory of moving from her starting point. The 3 blocks included 2 turns. She is currently resting quietly without complaint. Past Medical History type 2 diabetes, fibromyalgia, COPD, hypertension, migraine and tobacco use disorder, obesity cardiac cath 11/20/17 LEFT VENTRICULOGRAM: EF 55% Anterobasal: Normal. Anterolateral: Normal Apical: Normal Diaphragmatic: Normal Posterobasal: Normal *No mitral regurgitation. CORONARY ANGIOGRAPHY: LM is a large caliber vessel with normal angiographic appearance. LAD is a large caliber vessel calcified vessel with mild luminal irregularities. D1 is a moderate caliber vessel with normal angiographic appearance. LCx is a moderate caliber non-dominant vessel with normal angiographic appearance. OM1 is a large caliber vessel with normal angiographic appearance. RCA is a large caliber dominant vessel with distal 20% stenosis. RPDA and RPL are moderate caliber vessels with normal angiographic appearance. MPI 11/18/17 Conclusion 1. No evidence of stress induced EKG changes. 2. Large anterior wall reversible perfusion defect suggestive of LAD territory disease. 3. Normal LVEF at 60% 4. Moderate to high risk study echo 11/17/17 Left ventricle systolic function is normal. The Ejection Fraction is 55-60%. There is normal LV segmental wall motion. Trace tricuspid regurgitation. The PA pressure was estimated at 19 mmHg. There is no evidence of significant pericardial effusion. Past Surgical History Appendectomy, Cholecystectomy, Hysterectomy, Tonsillectomy Family History coronary artery disease with MD in her mother and father before the age of 55. Social History Non smoker, no significant ETOH, no illicit drugs. 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 Current Medications Current Medications Aspirin (Children'S Aspirin) 324 mg 1X ONCE PO Last administered on 03/23/18at 21:45; Start 03/23/18 at 22:00; Stop 03/23/18 at 22:01; Status DC Morphine Sulfate (Morphine 2mg Syringe) 2 mg 1X ONCE IV ; Start 03/23/18 at 22: 30; Stop 03/23/18 at 22:31; Status DC Morphine Sulfate (Morphine 4mg Syringe) 4 mg STK-MED ONCE .ROUTE ; Start at 22:17; Stop 03/23/18 at 22:18; Status DC Morphine Sulfate (Morphine 4mg Syringe) 2 mg 1X ONCE IV Last administered on at 22:28; Start 03/23/18 at 22:30; Stop 03/23/18 at 22:31; Status DC Ondansetron HCl (Zofran) 4 mg PRN Q4HRS PRN IV NAUSEA/VOMITING Last administered on 03/24/18at 09:11; Start 03/23/18 at 22:30; Stop 03/24/18 at 22:29 Morphine Sulfate (Morphine 4mg Syringe) 2 mg PRN Q2HR PRN IV PAIN Last administered on 03/24/18at 09:06; Start 03/23/18 at 22:30; Stop 03/24/18 at 22:29 Sodium Chloride 1,000 ml @ 125 mls/hr Q8H IV Last administered on 03/24/18at 06: 31; Start 03/23/18 at 22:18; Stop 03/24/18 at 22:17 Nitroglycerin (Nitrostat) 0.4 mg PRN Q5MIN PRN SL CHEST PAIN Last administered on 03/23/18at 22:36; Start 03/23/18 at 22:30; Stop 03/24/18 at 22:29 Iohexol (Omnipaque 300 Mg/ml) 75 ml 1X ONCE IV Last administered on 03/23/18at 23:43; Start 03/23/18 at 23:00; Stop 03/23/18 at 23:01; Status DC Info (Do NOT chart on this entry -- for MONITORING) 1 each PRN DAILY PRN MC SEE COMMENTS; Start 03/23/18 at 23:15; Stop 03/25/18 at 23:14 Metoprolol Tartrate (Lopressor) 25 mg 1X ONCE PO Last administered on at 23:29; Start 03/23/18 at 23:30; Stop 03/23/18 at 23:31; Status DC Albuterol Sulfate (Ventolin Hfa) 1 puff PRN Q6HRS PRN INH SHORTNESS OF BREATH; Start 03/24/18 at 09:00; Stop 03/24/18 at 09:00; Status DC Furosemide (Lasix) 20 mg DAILY PO Last administered on 03/24/18at 09:12; Start at 09:00 Lisinopril (Prinivil) 5 mg DAILY PO Last administered on 03/24/18at 09:13; Start 03/24/18 at 09:00 Montelukast Sodium (Singulair) 10 mg HS PO ; Start 03/24/18 at 21:00 Ropinirole HCl (Requip) 0.25 mg HS PO ; Start 03/24/18 at 21:00 Tramadol HCl (Ultram) 50 mg BID PO Last administered on 03/24/18at 09:12; Start 03/24/18 at 09:00 Potassium Chloride (Klor-Con) 20 meq DAILYWBKFT PO Last administered on at 09:12; Start 03/24/18 at 09:00 Nicotine (Nicoderm Cq 21mg) 1 patch DAILY TD Last administered on 03/24/18at 09: 12; Start 03/24/18 at 09:00 Albuterol Sulfate (Ventolin) 2.5 mg PRN Q6HRS PRN NEB SHORTNESS OF BREATH; Start 03/24/18 at 09:00 Active Scripts Active Albuterol Sulfate Neb Soln (Albuterol Sulfate) 2.5 Mg/3 Ml Vial.neb 1 Vial NEB PRN Q4HRS 5 Days [Nicotine 21MG] 1 PATCH Patch 1 Patch TD DAILY Reported K-Tab ER (Potassium Chloride) 20 Meq Tablet.er 20 Meq PO DAILY Furosemide 20 Mg Tablet 20 Mg PO DAILY [Hormone Merari] 0.5 Strip SL BID LAST DOSE GIVEN: DATE: TIME: NEXT DOSE DUE: DATE: TIME: Tramadol Hcl (Tramadol HCl) 50 Mg Tablet 50 Mg PO BID LAST DOSE GIVEN: DATE: TIME: NEXT DOSE DUE: DATE: TIME: Montelukast Sodium Tablet (Montelukast Sodium) 10 Mg Tablet 10 Mg PO HS LAST DOSE GIVEN: DATE: TIME: NEXT DOSE DUE: DATE: TIME: Ropinirole Hcl 0.25 Mg Tablet 0.25 Mg PO HS LAST DOSE GIVEN: DATE: TIME: NEXT DOSE DUE: DATE: TIME: Lisinopril 5 Mg Tablet 5 Mg PO DAILY LAST DOSE GIVEN: DATE: TIME: NEXT DOSE DUE: DATE: TIME: Proair Hfa Inhaler (Albuterol Sulfate) 8.5 Gm Hfa.aer.ad 1 Puff INH PRN Q6HRS PRN LAST DOSE GIVEN: DATE: TIME: NEXT DOSE DUE: DATE: TIME: Allergies: Coded Allergies: Penicillins (Verified Allergy, Severe, 03/19/14) levofloxacin (Verified Allergy, Severe, Anaphylaxis, 11/07/16) acetaminophen (Verified Allergy, Intermediate, 03/24/18) egg (Verified Allergy, Intermediate, 03/24/18) latex (Verified Allergy, Intermediate, 03/24/18) theophylline (Verified Allergy, Intermediate, 03/24/18) Estrogens (Unverified Adverse Reaction, Intermediate, blisters in mouth, ) Review of System as per HPI or negative General: Alert, Oriented X3, Cooperative, No acute distress HEENT: Atraumatic, EOMI, Mucous membr. moist/pink Lungs: Clear to auscultation, Normal air movement Heart: Regular rate, Normal S1, Normal S2 Abdomen: Normal bowel sounds, Soft Extremities: No cyanosis, No edema, Normal pulses Neuro: Normal speech, Strength at 5/5 X4 ext Psych/Mental Status: Mental status NL, Mood NL VITALS Vital Signs Date Time Temp Pulse Resp B/P (MAP) Pulse Ox O2 Delivery O2 Flow Rate FiO2 03/24/18 09:14 97.3 84 16 114/79 (91) 97 Room Air Labs Laboratory Tests Test 03/23/18 21:30 03/24/18 00:41 03/24/18 05:50 White Blood Count 10.9 x10^3/uL (4.0-11.0) 8.1 x10^3/uL (4.0-11.0) Red Blood Count 4.86 x10^6/uL (3.50-5.40) 4.35 x10^6/uL (3.50-5.40) Hemoglobin 14.4 g/dL (12.0-15.5) 12.9 g/dL (12.0-15.5) Hematocrit 42.0 % (36.0-47.0) 38.1 % (36.0-47.0) Mean Corpuscular Volume 86 fL (79-100) 88 fL (79-100) Mean Corpuscular Hemoglobin 30 pg (25-35) 30 pg (25-35) Mean Corpuscular Hemoglobin Concent 34 g/dL (31-37) 34 g/dL (31-37) Red Cell Distribution Width 13.8 % (11.5-14.5) 14.0 % (11.5-14.5) Platelet Count 278 x10^3/uL (140-400) 242 x10^3/uL (140-400) Neutrophils (%) (Auto) 52 % (31-73) 41 % (31-73) Lymphocytes (%) (Auto) 38 % (24-48) 46 % (24-48) Monocytes (%) (Auto) 7 % (0-9) 10 % (0-9) Eosinophils (%) (Auto) 2 % (0-3) 3 % (0-3) Basophils (%) (Auto) 1 % (0-3) 0 % (0-3) Neutrophils # (Auto) 5.6 x10^3uL (1.8-7.7) 3.3 x10^3uL (1.8-7.7) Lymphocytes # (Auto) 4.2 x10^3/uL (1.0-4.8) 3.8 x10^3/uL (1.0-4.8) Monocytes # (Auto) 0.8 x10^3/uL (0.0-1.1) 0.8 x10^3/uL (0.0-1.1) Eosinophils # (Auto) 0.2 x10^3/uL (0.0-0.7) 0.2 x10^3/uL (0.0-0.7) Basophils # (Auto) 0.1 x10^3/uL (0.0-0.2) 0.0 x10^3/uL (0.0-0.2) D-Dimer (Hali) 1.04 mg/L (0.00-0.50) Sodium Level 140 mmol/L (136-145) 143 mmol/L (136-145) Potassium Level 3.4 mmol/L (3.5-5.1) 3.4 mmol/L (3.5-5.1) Chloride Level 105 mmol/L (98-107) 109 mmol/L (98-107) Carbon Dioxide Level 22 mmol/L (21-32) 26 mmol/L (21-32) Anion Gap 13 (6-14) 8 (6-14) Blood Urea Nitrogen 10 mg/dL (7-20) 11 mg/dL (7-20) Creatinine 0.9 mg/dL (0.6-1.0) 0.8 mg/dL (0.6-1.0) Estimated GFR (Cockcroft-Gault) 69.0 79.0 BUN/Creatinine Ratio 11 (6-20) Glucose Level 109 mg/dL (70-99) 93 mg/dL (70-99) Calcium Level 8.8 mg/dL (8.5-10.1) 8.4 mg/dL (8.5-10.1) Total Bilirubin 0.3 mg/dL (0.2-1.0) Aspartate Amino Transf (AST/SGOT) 15 U/L (15-37) Alanine Aminotransferase (ALT/SGPT) 23 U/L (14-59) Alkaline Phosphatase 80 U/L (46-116) Troponin I Quantitative < 0.017 ng/mL (0-0.055) < 0.017 ng/mL (0-0.055) < 0.017 ng/mL (0-0.055) Total Protein 7.4 g/dL (6.4-8.2) Albumin 3.3 g/dL (3.4-5.0) Albumin/Globulin Ratio 0.8 (1.0-1.7) Images EKG sinus rhythm without acute abn CTA - Impression: 1. No evidence of pulmonary embolism. 2. No significant findings. CXR - Impression: 1. There is no evidence of acute cardiopulmonary disease. Assessment/Plan 1. chest pain - MD ruled out. normal LV function by echo in Dec. Normal coronaries by cath in Dec. No further testing necessary at this time from CV perspective. Encourage heart healthy lifestyle to include smoking cessation, weight reduction, low sodium/cholesterol diet and regular exercise. 2. hypertension - controlled on current therapies. 3. history of transient amnesia vs TIA - outpatient event monitor. Consider neuro consult. Aggressive management of ANGELINA. 4. hypertension - controlled. resume home meds. 5. hyperlipidemia - check lipids and statin as indicated. 6. obesity - weight reduction 7. tobaccoism - smoking cessation Problems: IRINA BOATENG STUD SETTER March 24, 2018 09:58
[2018-03-24 10:22] VITALS: BP 114/80
[2018-03-24 14:46] VITALS: BP 123/73
--- NOTE | 2018-03-24 17:01 | SSS ---
ADMIT DATE: 03/24/2018 HISTORY OF PRESENT ILLNESS: The patient is a 43-year-old female patient, who came to the Emergency Room complaining of chest pain, midsternal to left chest with radiation to her left neck, shoulder, and upper arm. She reports associated with nausea. She was seen previously for similar symptoms in 10/2017. At that time, she underwent an echo, which revealed normal left ventricular function and nuclear stress test, which revealed moderate anterior wall perfusion defects. She ultimately underwent cardiac catheterization, which revealed normal coronaries with only minimal right coronary artery disease up to 20%. She apparently has been experiencing a lot of stresses in her life right now. She was intermittently tearful during the interview. She complains of sleep apnea, inability to afford the CPAP. She also complains of migraines and worried that she might be having some kind of seizure activity. She had an episode recently while driving to work where she traveled 3 blocks in over 20 minutes and had no memory of moving from her starting point. The 3 blocks include 2 turns. She is currently resting. When I saw her, she has been chest pain free and she was basically admitted to the hospital, has had 3 sets of cardiac enzymes, all of them were normal and they are less than 0.017. She was seen in consultation by the Cardiology team, who recommended an event monitor and given her concerns about the seizures we will arrange for her to be seen by Dr. Wright. Our social service liaison is arranging for her to have CPAP for at least oxygen at night time. PAST MEDICAL HISTORY: Significant for type 2 diabetes, fibromyalgia, chronic obstructive pulmonary disease, hypertension, migraine headache and tobacco use disorder and also obesity. PAST SURGICAL HISTORY: Significant for left heart catheterization. FAMILY HISTORY: Positive for coronary artery disease with myocardial infarction in her mother and father for the age of 55. SOCIAL HISTORY: She is in the process of divorce. 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 She does not smoke, drink alcohol or use any recreational drugs. MEDICATIONS: She is currently on following medications: She is on albuterol sulfate 1 puff every 6 hours, albuterol sulfate 2.5 mg in 3 mL by nebulizer every 4 hours, lisinopril 5 mg once a day, tramadol 50 mg twice a day, Requip 0.25 mg at bedtime. She is on potassium chloride 20 mEq once a day, furosemide 20 mg daily. She is on Singulair 10 mg at bedtime and she is on 0.5 mg hormone sources half sublingually twice a day. She is also on Nicoderm patch 21 mg transdermal once a day. REVIEW OF SYSTEMS: As per history of present illness. PHYSICAL EXAMINATION: GENERAL: On examining her, she looked well and was clearly in no apparent respiratory distress, pale, but no jaundice, cyanosis, or thyromegaly. No jugular venous distention. No limb edema. VITAL SIGNS: Her heart rate was 76, blood pressure was 123/73, temperature was 98.1, respiratory rate 20, and oxygen saturation was 96% on room air. HEAD, EYES, EARS, NOSE AND THROAT: Showed normocephalic, atraumatic. NECK: Supple. HEART: Showed normal first and second heart sounds with no gallop, rub or murmur. CHEST: Clear to auscultation. No crepitation or rhonchi. ABDOMEN: Distended, soft, nontender. No guarding or rigidity. No organomegaly. All hernial orifice intact. Bowel sounds normal. NEUROLOGIC: She was awake, alert, responding appropriately. Cranial nerves intact. EXTREMITIES: She moves extremities without difficulty. She ambulates without assistance or assistive devices. LABORATORY DATA: Showed a white cell count of 8100, hemoglobin 12.9, hematocrit 38, MCV 88 and platelet count of 142,000. Her chemistry showed a serum sodium 140, potassium 3.4, chloride 105, bicarbonate 22, anion gap of 13. BUN of 10, creatinine 0.9, estimated GFR was 69 mL per minute. Her glucose 109, calcium was 8.8. Total bilirubin, AST, ALT, alkaline phosphatase were normal. Total protein 7.4, albumin 3.3. She has 3 sets of cardiac enzymes, all of them showed troponin to be less than 0.017. Her coagulations with D-dimer 1.04. Did have a chest x-ray, which basically showed no evidence of acute cardiopulmonary disease. ASSESSMENT AND PLAN: Given her D-dimer she had CT angio of the chest, which showed no evidence of pulmonary embolism or significant finding as the patient has had normal coronary arteries only 6 months ago. A decision was made to discharge her home with arrangements for an event monitor, which she would be shift to her home by the Cardiology team. We will arrange for her to be seen by Dr. Wright for migraine headache and possible seizures and our high risk case manager will arrange for her to have either home oxygen and/or CPAP. FINAL DISCHARGE DIAGNOSES: Chest pain, rule out myocardial infarction, hypertension, hyperlipidemia, type 2 diabetes, chronic obstructive pulmonary disease, fibromyalgia, migraine headache, morbid obesity and tobacco use disorder. DARWIN HANNA MD DR: [id number] JOB#: [id number] / [id number]
[2018-03-24] MEDS ORDERED: POTASSIUM CHLORIDE 20 MEQ TABLET.ER. PO ONE (17:15)
[2018-03-24] MEDS ORDERED: MONTELUKAST 10 MG TABLET. PO SCH (21:00)
[2018-03-24] MEDS ORDERED: rOPINIRole 0.25 MG TABLET. PO SCH (21:00)
== END 2018-03-24 16:59 | disposition home or self-care (01) ==
LOC: ER 21:17 → INTOOBSV 03-24 02:05 → 1 SOUTH 03-24 02:05
PROVIDERS: ADMIT Internal Medicine; ATTEND Internal Medicine
DX: R07.89 Other chest pain (principal); I10 Essential (primary) hypertension; E78.5 Hyperlipidemia, unspecified; E66.9 Obesity, unspecified; F17.200 Nicotine dependence, unspecified, uncomplicated; E11.9 Type 2 diabetes mellitus without complications; G43.909 Migraine, unspecified, not intractable, without status migrainosus; G47.33 Obstructive sleep apnea (adult) (pediatric); J44.9 Chronic obstructive pulmonary disease, unspecified; Z82.49 Family history of ischemic heart disease and other diseases of the circulatory system; M79.7 Fibromyalgia
CPT/HCPCS: 36415; 71045; 71275; 80048; 80053; 84484; 85025; 85379; 93005; 96361; 96374; 96375; 96376; 99285; G0378; J2270; J2405; Q9967; G0379; J7030